=== PATIENT | male | born 1950 | race Caucasian/White ===

== ENCOUNTER 2020-05-25 07:33 | Day surgery (SDC) | payer MEDICARE, OTHER, SELFPAY ==
[2020-05-18 15:22] VITALS: BMI 33.9
--- NOTE | 2020-05-20 15:19 | HO.ANESPROP2 ---
Documented by User: Jaja Raines 05/20/20 15:20 HPI - Anesthesia Eval Consult details Narrative: 70yo M for Upper Endoscopy and Colonoscopy PMFSH Past Medical History Medical History Anemia Depression Elevated cholesterol HTN (hypertension) Surgical History Surgical History H/O colonoscopy History of esophagogastroduodenoscopy (EGD) Social History Social History Are you a primary child care counselor to a significant other at home: No Do you presently have visiting nurse or other home services: No Smoking Status: Former smoker Tobacco Type: Cigarette Smoked in Last 30 Days: No Smoking Quit Date: 1990 Use of substances other than those prescribed or required for medical reasons: No Have you been hit, kicked, punched, or otherwise hurt by someone within the past year? If so, by whom?: No Advance Directives Information Provided: No Recently lost weight without trying: No Meds Allergies Allergy/AdvReac Type Severity Reaction Status Date / Time bee pollen [BEE STINGS] Allergy Severe ANAPHYLAXIS Verified 05/25/20 07:57 Home Medications Medication Instructions Recorded Confirmed Last Taken Type amitriptyline 100 mg PO BEDTIME 02/11/20 05/18/20 Unknown History amlodipine 5 mg PO DAILY 02/11/20 05/18/20 Unknown History aspirin [Aspirin Low Dose] 81 mg PO DAILY 02/11/20 05/18/20 Unknown History atorvastatin 40 mg PO BEDTIME 02/11/20 05/18/20 Unknown History docusate sodium [DOK] 100 mg PO DAILY 02/11/20 05/18/20 Unknown History ferrous sulfate 325 mg PO DAILY 02/11/20 05/18/20 Unknown History lisinopril 40 mg PO DAILY 02/11/20 05/18/20 Unknown History paroxetine HCl 40 mg PO DAILY 02/11/20 05/18/20 Unknown History terazosin 1 mg PO DAILY 02/11/20 05/18/20 Unknown History Exam Exam Date and Time: May 20, 2020 1519 Height,Weight and Vital Signs: Height 5 ft 6 in Weight 95.254 kg Assessment and Plan Assessment Anesthesia Assessment: Chart Reviewed Documented by User: Deedee Hauser 05/25/20 08:03 PMFSH Past Medical History Medical History Anemia Depression Elevated cholesterol HTN (hypertension) Family History Family history of problems with anesthesia: No Surgical History Surgical History H/O colonoscopy History of esophagogastroduodenoscopy (EGD) History of Problems with Anesthesia: No Social History Social History Are you a primary child care counselor to a significant other at home: No Do you presently have visiting nurse or other home services: No Smoking Status: Former smoker Tobacco Type: Cigarette Smoked in Last 30 Days: No Smoking Quit Date: 1990 Use of substances other than those prescribed or required for medical reasons: No Have you been hit, kicked, punched, or otherwise hurt by someone within the past year? If so, by whom?: No Advance Directives Information Provided: No Recently lost weight without trying: No Meds Allergies Allergy/AdvReac Type Severity Reaction Status Date / Time bee pollen [BEE STINGS] Allergy Severe ANAPHYLAXIS Verified 05/25/20 07:57 Home Medications Medication Instructions Recorded Confirmed Last Taken Type amitriptyline 100 mg PO BEDTIME 02/11/20 05/18/20 Unknown History amlodipine 5 mg PO DAILY 02/11/20 05/18/20 Unknown History aspirin [Aspirin Low Dose] 81 mg PO DAILY 02/11/20 05/18/20 Unknown History atorvastatin 40 mg PO BEDTIME 02/11/20 05/18/20 Unknown History docusate sodium [DOK] 100 mg PO DAILY 02/11/20 05/18/20 Unknown History ferrous sulfate 325 mg PO DAILY 02/11/20 05/18/20 Unknown History lisinopril 40 mg PO DAILY 02/11/20 05/18/20 Unknown History paroxetine HCl 40 mg PO DAILY 02/11/20 05/18/20 Unknown History terazosin 1 mg PO DAILY 02/11/20 05/18/20 Unknown History Exam Height,Weight and Vital Signs: Vital Signs Temp Pulse Resp BP Pulse Ox 05/25/20 07:46 97.4 F 89 16 129/87 98 Airway Mallampati Class: II TM Dist: >3cm Neck ROM: Full Loose/Missing/Broken Teeth: Yes (Some missing) Heart: RRR Lungs: CTAB Assessment and Plan Assessment Anesthesia Assessment: Anesthesia Plan Discussed and Chart Reviewed Final Anesthetic Review NPO: Yes ASA Class: II Final Preanesthetic Review: No Changes in Pt Med Stat, Meds/Allgs Chart Reviewed, Consent Obtained/Reviewed and Anes Risks/Benef Reviewed Patient Risk: Low Procedure Risk: Low Assessment/Block/Sedation in SS: Assess/Block/Sedation-SS Anesthetic Plan Anesthetic Plan: MAC: Disposition: Standard PACU
--- NOTE | 2020-05-25 07:37 | MHC.SHP ---
Pre-Procedural Eval Section B Chief Complaint: Barretts, Anemia Details of Present Illness: hx of barretts, incomplete colonoscopy Relevant Family History (Specify if Yes): No Relevant Social History: Tobacco Use Present Medications: see Short Stay Collaborative assessment Medical History: Significant History (Anemia Depression Elevated cholesterol HTN (hypertension)) History of Previous Operations: Relevant previous surgery/procedure and date(s) Allergies: Allergies Allergy/AdvReac Type Severity Reaction Status Date / Time bee pollen [BEE STINGS] Allergy Severe ANAPHYLAXIS Verified 02/11/20 15:08 Review of Systems Sugical H&P ROS: Negative: Constitution, Cardiovascular, Respiratory, Neurological, Psychiatric, Hem-Onc, Allergic/Immunologic, Gastrointestinal, Genitourinary, Musculoskeletal, Integumentary, Endocrine and Eyes/Ears/Nose/Throat Exam Surgical H&P Exam: Normal: HEENT, Normal: Heart, Normal: Lungs, Normal: Extremities, Normal: Abdomen, Normal: Skin and Normal: Neurological Plan Diagnosis/Plan: Unchanged I have reviewed the history and physical and performed a pertinent physical examination on my patient. No changes have occurred unless specified.
[2020-05-25 07:46] VITALS: BP 129/87; PULSE 89; RESP 16; TEMP 36.3; O2SAT 98
[2020-05-25] MEDS: Lactated Ringers 1,000 ML 100 ML IVCONT (08:14)
--- NOTE | 2020-05-25 08:56 | PM.OP ---
Brief Operative Note Date of Service: 05/25/20 Pre-op diagnosis: barretts, incomplete colonoscopy Post-op diagnosis: same Procedure: see op note Surgeon: Nathanael Martin MD Anesthesia: GETA Estimated blood loss (mL): 0 Condition: stable Disposition: PACU
--- NOTE | 2020-05-25 08:56 | W.PM.OPN ---
Operative Note Operative Note Date of Service: 05/25/20 Narrative: Operative Information Procedure Description: EGD, Colonoscopy General anesthesia given FLEXIBLE TRANSORAL UPPER GASTROINTESTINAL ENDOSCOPY AND COLONOSCOPY PROCEDURE NOTE UPPER ENDOSCOPY Consent: Indications for the procedure and potential complications of bleeding, perforation, reaction to medications and missed diagnosis were discussed with the patient and informed consent was obtained. Instrument: Olympus GIF H 190 J mid size upper endoscope Monitoring: Vital signs and clinical assessment, continuous EKG monitoring, Pulse oximetry, Carbon Dioxide monitoring and blood pressure monitoring were done throughout the procedure. Procedure: The patient was placed in the left lateral decubitis position and pre-procedure medications were administered and a bite block was placed. The endoscope was inserted into the mouth and advanced under direct vision to the third part of duodenum. A careful inspection was made as the upper endoscope was withdrawn including a retroflexed examination of the proximal stomach; Findings and interventions are described below. Findings: Larynx:normal Esophagus: GE junction at 37 cm, diaphragm hiatus at 42 cm, consistent with 5 cm hiatal hernia. Long segment of salmon pink mucosa noted C10M11, WATS brushings taken, as well as biopsy every 2 cm 4 quadrants per [place] protocol. No discrete nodular lesions or masses seen with blue light. Stomach: Normal mucosa. Grade 2 flap valve on retroflexed examination of the cardia. Duodenum: Normal bulb and descending duodenum, Intervention: Biopsies as noted above with brushings for WATS sampling COLONOSCOPY Instrument: Olympus variable stiffness ADULT scope 190L Colonoscopy Monitoring: Vital signs and clinical assessment, continuous EKG monitoring, Pulse oximetry, Carbon Dioxide monitoring and blood pressure monitoring were done throughout the procedure. Colon withdrawal time was 10 minutes. Procedure: The patient was placed in the left lateral decubitis position and pre-procedure medications were administered. After a digital rectal examination of the ano-rectum, the video colonoscope was inserted into the rectum and advanced through the colon to the cecum/TI. The colonoscope was slowly withdrawn in a retrograde panoramic fashion and the colon mucosa was carefully examined including a retroflexed view of the rectum. Findings and interventions are described below. Procedure Difficulty:difficult due to looping, pressure applied by 2 people to LLQ and right side abdomen Findings: Terminal Ileum-not intubated Cecum: 10-11 mm sessile polyp removed with cold snare, residual tissue with forceps, then one clip applied for hemostasis Ascending Colon: normal Transverse Colon -normal Descending Colon:normal Sigmoid Colon: scattered diverticula noted Rectum: Retroflexion with small internal hemorrhoids, grade I, 8-9 mm sessile polyp removed with forceps Anorectum - normal Colon preparation: [place] Bowel Preparation Scale Right colon; 2 Transverse colon: 2 Left colon; 1 (0 = Unprepared colon segment with mucosa not seen due to solid stool that cannot be cleared. 1 = Portion of mucosa of the colon segment seen, but other areas of the colon segment not well seen due to staining, residual stool and/or opaque liquid. 2 = Minor amount of residual staining, small fragments of stool and/or opaque liquid, but mucosa of colon segment seen well. 3 = Entire mucosa of colon segment seen well with no residual staining, small fragments of stool or opaque liquid) Impression and Post Procedure Diagnosis: Endoscopy Findings: barretts, hiatal hernia Colonoscopy Findings: polyps internal hemorrhoids diverticular disease Plan: Await Pathology results Repeat Colonoscopy in 2-3 years or earlier if clinically indicated High fiber diet leaflet avoid straining at stool, epsom salts and sitz bath, anusol supps or cream prn may need repeat EGD with RFA or hybrid APC, will await results next colonoscopy with adult scope and maybe prone position Above findings were reviewed with the patient and relevant handouts were provided if indicated.
[2020-05-25 10:48] VITALS: BP 127/68; PULSE 74; RESP 16; TEMP 36.9; O2SAT 99
[2020-05-25 10:53] VITALS: BP 125/74; PULSE 70; RESP 16; O2SAT 96
[2020-05-25 10:58] VITALS: BP 127/77; PULSE 67; RESP 16; O2SAT 96
[2020-05-25 11:03] VITALS: BP 131/74; PULSE 62; RESP 16; O2SAT 96
[2020-05-25 11:18] VITALS: BP 132/82; PULSE 64; RESP 18; TEMP 36.9; O2SAT 97
== END 2020-05-25 12:24 | disposition home or self-care (01) ==
PROVIDERS: PCP Internal Medicine; Visit Provider Internal Medicine Gastroenterology
PROC: (CPT 45385; principal; 2020-05-25 08:30)
DX: D64.9 Anemia, unspecified (principal); K22.70 Barrett's esophagus without dysplasia; K57.30 Diverticulosis of large intestine without perforation or abscess without bleeding; K56.2 Volvulus; K64.0 First degree hemorrhoids; D12.0 Benign neoplasm of cecum; K62.1 Rectal polyp; I10 Essential (primary) hypertension; Z79.899 Other long term (current) drug therapy
CPT/HCPCS: 45385; 45380; 43239; 88305; J1100; J2405; J3010

== ENCOUNTER → 2020-06-10 09:57 | Outpatient (BNVA) | payer MEDICARE, SELFPAY | PROVIDERS: PCP Internal Medicine; Visit Provider Internal Medicine Gastroenterology | DX: Z13.89 Encounter for screening for other disorder (principal) | CPT/HCPCS: Q3014 ==

== ENCOUNTER 2020-12-14 07:02 | Day surgery (SDC) | payer MEDICARE, OTHER, SELFPAY ==
[2020-12-07 15:06] VITALS: BMI 33.2
--- NOTE | 2020-12-13 09:41 | HO.ANESPROP2 ---
Documented by User: Jjaa Raines NP 12/13/20 09:42 HPI - Anesthesia Eval Consult details Narrative: 70yo M for Upper Endoscopy s/p EGD and [place] 05/2020 with MAC PMFSH Active Problems Active Problems: All Active Problems (Updated 12/07/20 @ 14:56 by Ronna Mera RN) Springer's esophagus (Acute) Colonic polyp (Acute) Depression (Acute) Past Medical History Medical History (Updated 12/07/20 @ 14:56 by Ronna Mera RN) Anemia Barretts esophagus Depression Elevated cholesterol Hiatal hernia HTN (hypertension) Family History Family History (Updated 06/10/20 @ 10:02 by JOSÉ MIGUEL Malone) Father No problems noted. Mother No problems noted. Family history of problems with anesthesia: No Surgical History Surgical History (Updated 12/07/20 @ 14:56 by Ronna Mera RN) H/O colonoscopy History of esophagogastroduodenoscopy (EGD) History of Problems with Anesthesia: No Social History Social History (Updated 06/10/20 @ 10:01 by JOSÉ MIGUEL Malone) Are you a primary healthcare management consultant to a significant other at home: No Do you presently have visiting nurse or other home services: No Alcohol intake: current Alcohol intake frequency: does not drink Patient Tobacco Use Status: Former Tobacco user Quit Date: 1990 Tobacco use type: Cigarette Use of substances other than those prescribed or required for medical reasons: No Have you been hit, kicked, punched, or otherwise hurt by someone within the past year? If so, by whom?: No Are you DNR?: No Advance Directives: No Advance Directives Information Provided: No (states does not have a HCP) Advance Directives on File: No Recently lost weight without trying: No Eating poorly because of decreased appetite: No Nutrition Risks: No Nutritional Risk Poor oral hygiene: No (upper partial) Meds Allergies Allergy/AdvReac Type Severity Reaction Status Date / Time bee pollen [BEE STINGS] Allergy Severe ANAPHYLAXIS Verified 12/14/20 08:00 Home Medications Medication Instructions Recorded Confirmed Last Taken Type amitriptyline 100 mg tablet 100 mg PO BEDTIME 02/11/20 12/07/20 Unknown History amlodipine 5 mg tablet 5 mg PO DAILY 02/11/20 12/07/20 12/14/20 06:30 History aspirin 81 mg tablet,delayed 81 mg PO DAILY 02/11/20 12/14/20 09/13/20 History release (Aspirin Low Dose) atorvastatin 40 mg tablet 40 mg PO BEDTIME 02/11/20 12/07/20 Unknown History docusate sodium 100 mg capsule 100 mg PO DAILY 02/11/20 12/07/20 Unknown History (DOK) ferrous sulfate 325 mg (65 mg 325 mg PO DAILY 02/11/20 12/14/20 12/13/20 History iron) tablet lisinopril 40 mg tablet 40 mg PO DAILY 02/11/20 12/07/20 Unknown History paroxetine HCl 40 mg tablet 40 mg PO DAILY 02/11/20 12/07/20 05/25/20 06:00 History terazosin 1 mg capsule 1 mg PO DAILY 02/11/20 12/07/20 Unknown History meloxicam 15 mg tablet 15 mg PO DAILY 06/10/20 12/07/20 Unknown History pantoprazole 40 mg tablet,delayed 40 mg PO DAILY 06/10/20 12/07/20 Unknown History release sennosides 8.6 mg tablet 17.2 mg PO DAILY 06/10/20 12/07/20 Unknown History Exam Exam Date and Time: December 13, 2020 0941 Height,Weight and Vital Signs: Height 5 ft 6 in Weight 93.44 kg Assessment and Plan Assessment Anesthesia Assessment: Chart Reviewed Final Anesthetic Review Family History of Problems with Anesthesia: No History of Problems with Anesthesia: No Documented by User: Wilver Chaves MD 12/14/20 08:20 [facility] Past Medical History Medical History (Updated 12/07/20 @ 14:56 by Ronna Mera RN) Anemia Barretts esophagus Depression Elevated cholesterol Hiatal hernia HTN (hypertension) Family History Family History (Updated 06/10/20 @ 10:02 by JOSÉ MIGUEL Malone) Father No problems noted. Mother No problems noted. Surgical History Surgical History (Updated 12/07/20 @ 14:56 by Ronna Mera RN) H/O colonoscopy History of esophagogastroduodenoscopy (EGD) Social History Social History (Updated 06/10/20 @ 10:01 by JOSÉ MIGUEL Malone) Are you a primary healthcare management consultant to a significant other at home: No Do you presently have visiting nurse or other home services: No Alcohol intake: current Alcohol intake frequency: does not drink Patient Tobacco Use Status: Former Tobacco user Quit Date: 1990 Tobacco use type: Cigarette Use of substances other than those prescribed or required for medical reasons: No Have you been hit, kicked, punched, or otherwise hurt by someone within the past year? If so, by whom?: No Are you DNR?: No Advance Directives: No Advance Directives Information Provided: No (states does not have a HCP) Advance Directives on File: No Recently lost weight without trying: No Eating poorly because of decreased appetite: No Nutrition Risks: No Nutritional Risk Poor oral hygiene: No (upper partial) Meds Allergies Allergy/AdvReac Type Severity Reaction Status Date / Time bee pollen [BEE STINGS] Allergy Severe ANAPHYLAXIS Verified 12/14/20 08:00 Home Medications Medication Instructions Recorded Confirmed Last Taken Type amitriptyline 100 mg tablet 100 mg PO BEDTIME 02/11/20 12/07/20 Unknown History amlodipine 5 mg tablet 5 mg PO DAILY 02/11/20 12/07/20 12/14/20 06:30 History aspirin 81 mg tablet,delayed 81 mg PO DAILY 02/11/20 12/14/20 09/13/20 History release (Aspirin Low Dose) atorvastatin 40 mg tablet 40 mg PO BEDTIME 02/11/20 12/07/20 Unknown History docusate sodium 100 mg capsule 100 mg PO DAILY 02/11/20 12/07/20 Unknown History (DOK) ferrous sulfate 325 mg (65 mg 325 mg PO DAILY 02/11/20 12/14/20 12/13/20 History iron) tablet lisinopril 40 mg tablet 40 mg PO DAILY 02/11/20 12/07/20 Unknown History paroxetine HCl 40 mg tablet 40 mg PO DAILY 02/11/20 12/07/20 05/25/20 06:00 History terazosin 1 mg capsule 1 mg PO DAILY 02/11/20 12/07/20 Unknown History meloxicam 15 mg tablet 15 mg PO DAILY 06/10/20 12/07/20 Unknown History pantoprazole 40 mg tablet,delayed 40 mg PO DAILY 06/10/20 12/07/20 Unknown History release sennosides 8.6 mg tablet 17.2 mg PO DAILY 06/10/20 12/07/20 Unknown History Exam Airway Mallampati Class: III TM Dist: >3cm Neck ROM: Full Loose/Missing/Broken Teeth: No Heart: [id number] Lungs: cta b/l Assessment and Plan Assessment Anesthesia Assessment: Anesthesia Plan Discussed and PAT Visit Final Anesthetic Review NPO: Yes ASA Class: III Final Preanesthetic Review: No Changes in Pt Med Stat, Meds/Allgs Chart Reviewed, Consent Obtained/Reviewed and Anes Risks/Benef Reviewed Patient Risk: Intermediate Procedure Risk: Low Assessment/Block/Sedation in SS: Assess/Block/Sedation-SS Anesthetic Plan Anesthetic Plan: MAC: and Agree w/ Assess. and Plan Disposition: Standard PACU
[2020-12-14 08:07] VITALS: BP 111/77; PULSE 61; RESP 16; TEMP 36.4; O2SAT 99
[2020-12-14] MEDS: Lactated Ringers 1,000 ML 100 ML IVCONT (08:22)
--- NOTE | 2020-12-14 08:48 | P.HPSUR_ITS ---
Pre-Procedural Eval Section A Date of Service: 12/14/20 Section B Chief Complaint: barretts Relevant Family History (Specify if Yes): No Relevant Social History: None (ex smoker) Present Medications: see Short Stay Collaborative assessment Medical History: Significant History (Anemia Barretts esophagus Depression Elevated cholesterol Hiatal hernia HTN (hypertension)) History of Previous Operations: Relevant previous surgery/procedure and date(s) (EGD,colonoscopy) Allergies: Allergies Allergy/AdvReac Type Severity Reaction Status Date / Time bee pollen [BEE STINGS] Allergy Severe ANAPHYLAXIS Verified 12/14/20 08:00 Review of Systems Sugical H&P ROS: Negative: Constitution, Cardiovascular, Respiratory, Neurological, Psychiatric, Hem-Onc, Allergic/Immunologic, Gastrointestinal, Genitourinary, Musculoskeletal, Integumentary, Endocrine and Eyes/Ears/Nose/ Throat Exam Surgical H&P Exam: Normal: HEENT, Normal: Heart, Normal: Lungs, Normal: Extremities, Normal: Abdomen, Normal: Skin and Normal: Neurological Plan Diagnosis/Plan: Unchanged I have reviewed the history and physical and performed a pertinent physical examination on my patient. No changes have occurred unless specified.
--- NOTE | 2020-12-14 08:50 | P.BOP_ITS ---
Brief Operative Note Date of Service: 12/14/20 Pre-op diagnosis: barretts Post-op diagnosis: same Procedure: see op note Surgeon: Nathanael Martin MD Anesthesia: MAC Was an Human Capital Consultant used for this Procedure?: No Estimated blood loss (mL): 0 Condition: stable Disposition: PACU
--- NOTE | 2020-12-14 08:50 | W.PM.OPN ---
Operative Note Operative Note Date of Service: 12/14/20 Narrative: Procedure Description: EGD FLEXIBLE TRANSORAL UPPER GASTROINTESTINAL ENDOSCOPY UPPER ENDOSCOPY Consent: Indications for the procedure and potential complications of bleeding, perforation, reaction to medications and missed diagnosis were discussed with the patient and informed consent was obtained. Instrument: Olympus GIF H 190 J mid size upper endoscope Monitoring: Vital signs and clinical assessment, continuous EKG monitoring, Pulse oximetry, Carbon Dioxide monitoring and blood pressure monitoring were done throughout the procedure. Procedure: The patient was placed in the left lateral decubitis position and pre-procedure medications were administered and a bite block was placed. The endoscope was inserted into the mouth and advanced under direct vision to the third part of duodenum. A careful inspection was made as the upper endoscope was withdrawn including a retroflexed examination of the proximal stomach; Findings and interventions are described below. Findings: Larynx:normal Esophagus: GE junction at 35? cm, diaphragm hiatus at 42 cm, consistent with 7 cm hiatal hernia. Long segment of salmon pink mucosa noted C10M0, WATS brushings taken, as well as biopsy every 2 cm 4 quadrants per [place] protocol. No discrete nodular lesions or masses seen with blue light. Stomach: Normal mucosa. Grade 2 flap valve on retroflexed examination of the cardia. Duodenum: Normal bulb and descending duodenum, Intervention: Biopsies as noted above with brushings for WATS sampling Impression/Findings: Barretts esophagus PLAN: await bx repeat surveillance pending results
[2020-12-14 09:45] VITALS: BP 109/54; PULSE 63; RESP 16; TEMP 36.3; O2SAT 94
[2020-12-14 09:51] VITALS: PULSE 58; RESP 16; O2SAT 94
[2020-12-14 10:00] VITALS: BP 115/53; PULSE 52; RESP 16; O2SAT 97
== END 2020-12-14 11:34 | disposition home or self-care (01) ==
PROVIDERS: PCP Internal Medicine; Visit Provider Internal Medicine Gastroenterology
PROC: 0DJ08ZZ Inspection of Upper Intestinal Tract, Via Natural or Artificial Opening Endoscopic (ICD-10-PCS; CPT 43235; principal; 2020-12-14 09:10)
DX: K22.70 Barrett's esophagus without dysplasia (principal); K44.9 Diaphragmatic hernia without obstruction or gangrene; I10 Essential (primary) hypertension
CPT/HCPCS: 43239; 88305; J3010

== ENCOUNTER → 2020-12-27 09:40 | Outpatient (BNVA) | payer MEDICARE, SELFPAY | PROVIDERS: PCP Internal Medicine; Visit Provider Internal Medicine Gastroenterology | DX: K22.70 Barrett's esophagus without dysplasia (principal) | CPT/HCPCS: 99212 ==

== ENCOUNTER → 2021-06-23 08:24 | Outpatient (BNVA) | payer MEDICARE, SELFPAY | PROVIDERS: PCP Internal Medicine; Visit Provider Internal Medicine Gastroenterology | DX: K22.719 Barrett's esophagus with dysplasia, unspecified (principal) | CPT/HCPCS: Q3014 ==

== ENCOUNTER 2021-11-10 08:07 | Day surgery (SDC) | payer MEDICARE, OTHER, SELFPAY ==
[2021-11-07 10:33] VITALS: BMI 33.5
--- NOTE | 2021-11-09 12:37 | P.CONAN_ITS ---
Documented by User: Jaja Raines NP 11/09/21 12:38 HPI - Anesthesia Eval Consult details Narrative: 71yo M for Upper Endoscopy EGD 12/2020 with MAC PMFSH Active Problems Active Problems: All Active Problems (Updated 12/07/20 @ 14:56 by Ronna Mera RN) Springer's esophagus (Acute) Colonic polyp (Acute) Depression (Acute) Past Medical History Medical History Anemia Barretts esophagus Depression Elevated cholesterol Hiatal hernia HTN (hypertension) Family History Family History Father No problems noted. Mother No problems noted. Family history of problems with anesthesia: No Surgical History Surgical History H/O colonoscopy History of esophagogastroduodenoscopy (EGD) History of Problems with Anesthesia: No Social History Social History Are you a primary care transitions manager to a significant other at home: No Do you presently have visiting nurse or other home services: No Alcohol intake: current Alcohol intake frequency: does not drink Patient Tobacco Use Status: Former Tobacco user Quit Date: 30 years ago Tobacco use type: Cigarette Use of substances other than those prescribed or required for medical reasons: No Are you DNR?: No Advance Directives: No Advance Directives Information Provided: Yes Meds Allergies Allergy/AdvReac Type Severity Reaction Status Date / Time bee pollen [BEE STINGS] Allergy Severe ANAPHYLAXIS Verified 06/23/21 08:24 Home Medications Medication Instructions Recorded Confirmed Last Taken Type amitriptyline 100 mg tablet 100 mg PO BEDTIME 02/11/20 12/07/20 Unknown History amlodipine 5 mg tablet 5 mg PO DAILY 02/11/20 12/07/20 11/10/21 History atorvastatin 40 mg tablet 40 mg PO BEDTIME 02/11/20 12/07/20 Unknown History docusate sodium 100 mg capsule 100 mg PO DAILY 02/11/20 12/07/20 Unknown History (DOK) ferrous sulfate 325 mg (65 mg 325 mg PO DAILY 02/11/20 12/14/20 12/13/20 History iron) tablet lisinopril 40 mg tablet 40 mg PO DAILY 02/11/20 12/07/20 Unknown History paroxetine HCl 40 mg tablet 40 mg PO DAILY 02/11/20 12/07/20 11/10/21 History terazosin 1 mg capsule 1 mg PO DAILY 02/11/20 12/07/20 Unknown History sennosides 8.6 mg tablet 17.2 mg PO DAILY 06/10/20 12/07/20 Unknown History trazodone 100 mg tablet 100 mg PO BEDTIME 12/27/20 Unknown History Exam Exam Date and Time: November 09, 2021 1237 Height,Weight and Vital Signs: Height 5 ft 7 in Weight 97.069 kg Assessment and Plan Assessment Anesthesia Assessment: Chart Reviewed Final Anesthetic Review Family History of Problems with Anesthesia: No History of Problems with Anesthesia: No Documented by User: Cora Schreiber MD 11/10/21 09:27 [facility] Past Medical History Medical History Anemia Barretts esophagus Depression Elevated cholesterol Hiatal hernia HTN (hypertension) Family History Family History Father No problems noted. Mother No problems noted. Surgical History Surgical History H/O colonoscopy History of esophagogastroduodenoscopy (EGD) Social History Social History Are you a primary care transitions manager to a significant other at home: No Do you presently have visiting nurse or other home services: No Alcohol intake: current Alcohol intake frequency: does not drink Patient Tobacco Use Status: Former Tobacco user Quit Date: 30 years ago Tobacco use type: Cigarette Use of substances other than those prescribed or required for medical reasons: No Are you DNR?: No Advance Directives: No Advance Directives Information Provided: Yes Meds Allergies Allergy/AdvReac Type Severity Reaction Status Date / Time bee pollen [BEE STINGS] Allergy Severe ANAPHYLAXIS Verified 06/23/21 08:24 Home Medications Medication Instructions Recorded Confirmed Last Taken Type amitriptyline 100 mg tablet 100 mg PO BEDTIME 02/11/20 12/07/20 Unknown History amlodipine 5 mg tablet 5 mg PO DAILY 02/11/20 12/07/20 11/10/21 History atorvastatin 40 mg tablet 40 mg PO BEDTIME 02/11/20 12/07/20 Unknown History docusate sodium 100 mg capsule 100 mg PO DAILY 02/11/20 12/07/20 Unknown History (DOK) ferrous sulfate 325 mg (65 mg 325 mg PO DAILY 02/11/20 12/14/20 12/13/20 History iron) tablet lisinopril 40 mg tablet 40 mg PO DAILY 02/11/20 12/07/20 Unknown History paroxetine HCl 40 mg tablet 40 mg PO DAILY 02/11/20 12/07/20 11/10/21 History terazosin 1 mg capsule 1 mg PO DAILY 02/11/20 12/07/20 Unknown History sennosides 8.6 mg tablet 17.2 mg PO DAILY 06/10/20 12/07/20 Unknown History trazodone 100 mg tablet 100 mg PO BEDTIME 12/27/20 Unknown History Exam Airway Mallampati Class: II TM Dist: >3cm Neck ROM: Full Partial: Upper and Lower Heart: rrr Lungs: cta Assessment and Plan Assessment Anesthesia Assessment: Anesthesia Plan Discussed and Chart Reviewed Final Anesthetic Review NPO: Yes ASA Class: III Final Preanesthetic Review: No Changes in Pt Med Stat, Meds/Allgs Chart Reviewed and Consent Obtained/Reviewed Patient Risk: Intermediate Procedure Risk: Intermediate Anesthetic Plan Anesthetic Plan: MAC: Disposition: Standard PACU
[2021-11-10 08:33] VITALS: BP 138/91; PULSE 72; RESP 18; TEMP 37; O2SAT 96; BMI 33.6
[2021-11-10] MEDS: Lactated Ringers 1,000 ML 100 ML IVCONT (09:01)
--- NOTE | 2021-11-10 09:11 | MHC.SHP ---
Pre-Procedural Eval Section A Date of Service: 11/10/21 The patient is an INPATIENT: No The History & Physical has been completed within 30 days and I have reviewed it.: No Section B Chief Complaint: Springer's esophagus without dysplasia Details of Present Illness: FU of Springer's Relevant Family History (Specify if Yes): No Relevant Social History: Tobacco Use (former smoker) Present Medications: see Short Stay Collaborative assessment Medical History: Significant History (Anemia Barretts esophagus Depression Elevated cholesterol Hiatal hernia HTN (hypertension)) History of Previous Operations: Relevant previous surgery/procedure and date(s) (H/O colonoscopy History of esophagogastroduodenoscopy (EGD)) Allergies: Allergies Allergy/AdvReac Type Severity Reaction Status Date / Time bee pollen [BEE STINGS] Allergy Severe ANAPHYLAXIS Verified 06/23/21 08:24 Review of Systems Sugical H&P ROS: Negative: Constitution, Cardiovascular, Respiratory and Gastrointestinal Exam Surgical H&P Exam: Normal: Heart, Normal: Lungs, Normal: Extremities and Normal: Abdomen Plan Diagnosis/Plan: Change (proceed with EGD for fu of Springer's) I have reviewed the history and physical and performed a pertinent physical examination on my patient. No changes have occurred unless specified.
--- NOTE | 2021-11-10 09:29 | PM.OP ---
Brief Operative Note Date of Service: 11/10/21 Pre-op diagnosis: Follow-up of Barretts metaplasia Post-op diagnosis: other (hiatal hernia, Springer's esophagus) Procedure: FLEXIBLE TRANSORAL UPPER GASTROINTESTINAL ENDOSCOPY WITH BIOPSIES Consent: Indications for the procedure and potential complications of bleeding, perforation, reaction to medications and missed diagnosis were discussed with the patient and informed consent was obtained. Instrument: Olympus GIF H 190 mid size upper endoscope Monitoring: Vital signs and clinical assessment, continuous EKG monitoring, Pulse oximetry, Carbon Dioxide monitoring and blood pressure monitoring were done throughout the procedure. Procedure: The patient was placed in the left lateral decubitis position and pre-procedure medications were administered and a bite block was placed. The endoscope was inserted into the mouth and advanced under direct vision to the third part of duodenum. A careful inspection was made as the upper endoscope was withdrawn including a retroflexed examination of the proximal stomach; Findings and interventions are described below. Findings: Larynx: Normal Esophagus: GE junction at 35 cm. Diaphragm hiatus at 42 cm. Consistent with 7 cm hiatal hernia. Long segment of salmon pink mucosa previously biopsy proven to be Barretts esophagus was noted. [place] score C9M10. Wats-3D brushings x3 were taken and sent for processing. Marcus protocol 4-quadrant biopsies were taken every 2 cm. No discrete mass high definition white light or NBI. There was ulceration with nodularity at the GEJ at 35 cm slightly protruding into the stomach which could also be seen in the retroflexed view of the cardia. Forceps biopsies were obtained and sent in a separate jar. Stomach: Normal mucosa. Few polyps likely fundic gland polyps were noted in fundus and body. Large hiatal hernia was again noted on retroflexion. Duodenum: Normal mucosa in bulb and D2. Intervention: Biopsies as noted above with brushings for WATS-3D. Impression and Post Procedure Diagnosis: Endoscopy Findings: LARYNX: Normal ESOPHAGUS: 1. Springer's esophagus (biopsy and brushing) 2. ?Nodularity at 35 cm (biopsy) STOMACH: Normal DUODENUM: Normal Plan: Await pathology results Patient has an appointment on 12/08/21 in the GI [facility] with Dr Martin. Above findings were reviewed with the patient and Springer's esophagus handouts were given in the discharge area Surgeon: Darian Galeas MD Anesthesia: MAC Was an Mixer Operator Raw Salt used for this Procedure?: Yes Mixer Operator Raw Salt: Yao Bowen Estimated blood loss (mL): 1 Pathology: other (A) BX Nodularity @ GE Juction B) BX Esophagus @ 35cm C) BX Esophagus @ 33cm D) BX Esophagus @ 31cm E) BX Esophagus @ 29cm F) BX Esophagus @ 27cm G) BX) Condition: stable Disposition: PACU
--- NOTE | 2021-11-10 09:30 | W.PM.OPN ---
Operative Note Operative Note Date of Service: 11/10/21 Narrative: Pre-op diagnosis: Follow-up of Barretts metaplasia Post-op diagnosis:?other (hiatal hernia, Springer's esophagus) Procedure: FLEXIBLE TRANSORAL UPPER GASTROINTESTINAL ENDOSCOPY WITH BIOPSIES Consent:?Indications for the procedure and potential complications of bleeding, perforation, reaction to medications and missed diagnosis were discussed with the patient and informed consent was obtained. Instrument:?Olympus GIF H 190 mid size upper endoscope Monitoring: Vital signs and clinical assessment, continuous EKG monitoring, Pulse oximetry, Carbon Dioxide monitoring and blood pressure monitoring were done throughout the procedure. Procedure:?The patient was placed in the left lateral decubitis position and pre-procedure medications were administered and a bite block was placed. The endoscope was inserted into the mouth and advanced under direct vision to the third part of duodenum. A careful inspection was made as the upper endoscope was withdrawn including a retroflexed examination of the proximal stomach; Findings and interventions are described below. Findings: Larynx:? Normal Esophagus: GE junction at 35 cm. Diaphragm hiatus at 42 cm.? Consistent with 7 cm hiatal hernia.? Long segment of salmon pink mucosa previously biopsy proven to be Barretts esophagus was noted.? [place] score C9M10. Wats-3D brushings x3 were taken and sent for processing. ? [place] protocol 4-quadrant biopsies were taken every 2 cm.? No discrete mass high definition white light or NBI. There was ulceration with nodularity at the GEJ at 35 cm slightly protruding into the stomach which could also be seen in the retroflexed view of the cardia. Forceps biopsies were obtained and sent in a separate jar. Stomach: Normal mucosa. Few polyps likely fundic gland polyps were noted in fundus and body. Large hiatal hernia was again noted on retroflexion. Duodenum: Normal mucosa in bulb and D2. Intervention: Biopsies as noted above with brushings for WATS-3D. Impression and Post Procedure Diagnosis: Endoscopy Findings: LARYNX: Normal ESOPHAGUS: 1. Springer's esophagus (biopsy and brushing) ? ? 2. ?Nodularity at 35 cm (biopsy) STOMACH: Normal DUODENUM: Normal Plan: Await pathology results Patient has an appointment on 12/08/21 in the GI Clinic with Dr Martin. Above findings were reviewed with the patient and Springer's esophagus handouts were given in the discharge area Surgeon: MD Darian Sanchez MD was present during the procedure Anesthesia:?MAC Was an Orthopedic Rn used for this Procedure?:?Yes Orthopedic Rn:?Yao Bowen Estimated blood loss (mL):?1 Pathology:?other (A) BX Nodularity @ GE Juction? B) BX Esophagus @ 35cm? C) BX Esophagus @ 33cm? D) BX Esophagus @ 31cm? E) BX Esophagus @ 29cm? F) BX Esophagus @ 27cm? G) BX) Condition:?stable Disposition:?PACU
[2021-11-10 10:59] VITALS: BP 97/61; PULSE 54; RESP 13; TEMP 36.2; O2SAT 96
[2021-11-10 11:14] VITALS: BP 107/67; PULSE 49; RESP 13; O2SAT 96
[2021-11-10 11:29] VITALS: BP 127/80; PULSE 55; RESP 16; O2SAT 96
[2021-11-10 11:50] VITALS: BP 124/80; PULSE 59; RESP 18; TEMP 36.4; O2SAT 98
== END 2021-11-10 12:15 | disposition home or self-care (01) ==
PROVIDERS: PCP Internal Medicine; Visit Provider Internal Medicine Gastroenterology
PROC: 0DJ08ZZ Inspection of Upper Intestinal Tract, Via Natural or Artificial Opening Endoscopic (ICD-10-PCS; CPT 43235; principal; 2021-11-10 09:30)
DX: K22.70 Barrett's esophagus without dysplasia (principal); K44.9 Diaphragmatic hernia without obstruction or gangrene; K22.9 Disease of esophagus, unspecified; I10 Essential (primary) hypertension; D64.9 Anemia, unspecified; E78.00 Pure hypercholesterolemia, unspecified; F32.A Depression, unspecified; Z79.899 Other long term (current) drug therapy; Z87.891 Personal history of nicotine dependence
CPT/HCPCS: 43239; 88305

== ENCOUNTER → 2021-12-08 10:45 | Outpatient (BNVA) | payer MEDICARE, OTHER, SELFPAY | PROVIDERS: PCP Internal Medicine; Visit Provider Internal Medicine Gastroenterology | DX: D64.9 Anemia, unspecified (principal); K22.70 Barrett's esophagus without dysplasia; I10 Essential (primary) hypertension; E78.00 Pure hypercholesterolemia, unspecified | CPT/HCPCS: Q3014 ==

== ENCOUNTER → 2022-08-15 07:42 | Outpatient (REF) | payer MEDICARE, SELFPAY ==
--- NOTE | 2022-08-15 07:45 | CA_ITS ---
Transthoracic Echocardiogram Patient (Last, First, Middle): Axel Sotomayor J Gender: Male Date of : 1950 Age: 72 Procedure Date: 08/15/2022 Procedure Type: Transthoracic Echocardiogram Location: OP Height: 170.18 cm Weight: 97.52 kg BSA: 2.09 m2 Heart Rate: bpm BP: 132 / 82 mmHg Grip Assembler: TO Referring MD: Shannan Houston MD Symptoms: SOB Study Quality: Fair ECG Rhythm: Sinus Conclusions: - The left ventricular systolic function is normal. The calculated ejection fraction is 67% by biplane method. - Moderately increased right ventricular cavity size. - The left atrium is moderately dilated. - There is mild tricuspid valve regurgitation. Findings Left Ventricle Normal left ventricular cavity size. There is mildly increased left ventricular wall thickness. The left ventricular systolic function is normal. The calculated ejection fraction is 67% by biplane method. There is no evidence of regional wall motion abnormalities. Diastolic function is normal for age. Moderate focal hypertrophy of the basal septum. Right Ventricle Moderately increased right ventricular cavity size. There is normal right ventricular systolic function. (measurement likely over-estimate). Atria The left atrium is moderately dilated. The right atrium is mildly dilated. Aortic Valve There is a normal trileaflet aortic valve. There is no aortic valve stenosis. There is no aortic valve regurgitation. Mitral Valve The mitral valve appears normal. There is mild mitral valve regurgitation. There is no mitral valve stenosis. Pulmonic Valve The pulmonic valve is likely normal. Tricuspid Valve Normal tricuspid valve structure. There is mild tricuspid valve regurgitation. There is no evidence of pulmonary hypertension. Great Vessels The asc aorta is normal in size. Venous The inferior vena cava is normal in size and collapses greater than 50% with inspiration. Pericardium/Pleural There is no evidence of pericardial effusion. Prior Study Comparison No prior study available for comparison. Measurements 2D Linear Measurements IVSd: 1.36 0.6-0.9/0.6-1.0 cm LVIDd: 5.42 3.9-5.3/4.2-5.9 cm LVIDd Index: 2.59 2.4-3.2/2.2-3.1 cm/m2 LVIDs: 2.85 2.0-3.6 cm LVPWd: 1.09 0.7-1.1 cm LA Diam: 3.30 2.7-3.8/3.0-4.0 cm LAIDs Index: 1.58 1.5-2.3 cm/m2 LV Mass: 341.35 67-162/88-224 g LV Mass Index: 163.33 43-95/49-115 g/m2 LVOT Diam: 2.50 3.0+(-)1.3 cm 2D Systolic Function EF 4C: 66.50 >55% EF 2C: 63.90 >55% EF BiP: 66.90 >55% Mitral Valve MV Pk E: 0.75 MV PK A: 0.62 MV Decel Time: 290.00 E/A: 1.20 E'Lateral: 7.51 E'Medial: 7.62 E/E' Med: 9.80 E/E' Lat: 9.90 PHT: 84.00 MVA PHT: 2.62 Decel [place]: 2.49 MR Vol - PW Dopp: 35.19 MR VTI: 2.07 MR ERO: 17.00 MR Alias Javed: 0.39 MR RAD: 0.60 Aortic Valve AoV Pk Javed: 1.26 AoV Mn Javed: 0.87 AoV VTI: 0.32 AoV Pk Grad: 6.00 Aov Mn Grad: 4.00 MICKY Cont.VTI: 3.38 LVOT LVOT Pk Javed: 1.03 LVOT Mn Javed: 0.66 LVOT VTI: 0.22 LVOT Pk Grad: 4.00 LVOT Mn Grad: 2.00 LVOT Diam: 2.50 LVOT Area: 4.91 Diastolic Function MV Pk E: 0.75 MV Pk A: 0.62 E/A: 1.20 E'Medial: 7.62 E/E' Med: 9.80 E' Laterial: 7.51 E/E' Lat: 9.90 Right Ventricle TAPSE (mm): 23.50 TVS' Javed: 9.36 Tricuspid Valve TR Pk Javed: 2.21 TR Pk Grad: 20.00 RA Press: 3.00 RVSP: 23.00 Great Vessels Aorta Sinus of Valsalva: 4.11 2.0-3.[address] [place]: 3.31 1.7-3.4 cm Ao Asc: 3.70 2.1-3.4 cm Updated in Other Vendor System with Status of Final Jonathan Stearns MD electronically signed on 08/16/2022 3:50:41 PM with status of Final
== END ==
LOC: HO.CARD 07:42
PROVIDERS: PCP Internal Medicine; Visit Provider Internal Medicine
DX: R06.02 Shortness of breath (principal)
CPT/HCPCS: 93306

== ENCOUNTER 2023-02-07 09:39 | Outpatient (REF) | payer MEDICARE, SELFPAY ==
[2023-02-07 14:09] LABS: MANUAL DIFF FLAG NO
[2023-02-07 14:18] LABS: Basophils Absolute Auto 0.1 X10*3/uL (0.0-0.2); Basophils Percent Auto 1.5 % (0-2); Eosinophils Absolute Auto 0.4 X10*3/uL (0.0-0.4); Eosinophils Percent Auto 6.4 % (0-4); Hematocrit 39.5 % (42.0-52.0); Hemoglobin 13.7 g/dl (14.0-18.0); Imm Gran Abs Auto 0.05 X10*3/uL (0.00-0.03); Imm Gran Pct Auto 0.8 % (0.0-0.4); Lymphocytes Absolute Auto 1.4 X10*3/uL (1.2-4.9); Lymphocytes Percent Auto 21.1 % (20-40); Mean Corpuscular HGB Conc 34.7 g/dl (31.0-36.0); Mean Corpuscular Hemoglobin 31.5 pg (27.0-33.0); Mean Corpuscular Volume 90.8 fL (80.0-98.0); Mean Platelet Volume 11.2 fL (9.4-12.4); Monocytes Absolute Auto 0.6 X10*3/uL (0.1-1.2); Monocytes Percent Auto 9.5 % (2-11); Neutrophils Percent Auto 60.7 % (45-73); Platelet Count 253 X10*3/uL (160-400); Red Blood Count 4.35 X10*6/uL (4.60-5.80); Red Cell Distribution Width 12.8 % (11.0-16.0); White Blood Count 6.5 X10*3/uL (4.8-10.8)
[2023-02-07 14:43] LABS: Alanine Aminotransferase 33 U/L (0-40); Albumin Level 4.6 g/dL (3.5-5.0); Alkaline Phosphatase 75 U/L (39-117); Anion Gap 13 (12-20); Aspartate Amino Transferase 26 U/L (5-37); Bilirubin Total 0.5 mg/dL (0.0-1.0); Blood Urea Nitrogen 19 mg/dL (9-16); Calcium 9.1 mg/dL (8.4-10.2); Carbon Dioxide 22 mmol/L (22-29); Chloride 111 mmol/L (96-108); Cholesterol 165 mg/dL (<200); Estimated Glomerular Filt Rate > 60; Glucose Fasting 76 mg/dL (60-99); HDL Cholesterol 47 mg/dL (>40); LDL Cholesterol Calculated 82 mg/dL (<100); Potassium 3.8 mmol/L (3.3-5.1); Sodium 142 mmol/L (135-145); Total Protein 7.2 g/dL (6.5-8.0); Triglycerides 184 mg/dL (<150)
== END 2023-02-07 09:40 | disposition home or self-care (01) ==
LOC: HO.CHCLDS 09:39
PROVIDERS: Visit Provider Internal Medicine
DX: I10 Essential (primary) hypertension (principal); D50.9 Iron deficiency anemia, unspecified
CPT/HCPCS: 36415; 80053; 80061; 84443; 85025

== ENCOUNTER 2023-08-09 11:49 | Outpatient (AMB) | payer MEDICARE, SELFPAY ==
[2023-08-09 11:51] VITALS: BP 119/86; PULSE 67; BMI 33.3
--- NOTE | 2023-08-09 11:51 | A.OFFVIS_ITS ---
Vital Signs 08/09/23 11:51 Height 5 ft 7 in Weight 212 lb 8.41 oz BMI 33.3 BP 119/86 Blood Pressure Location Lt brachial Position Sitting Pulse 67 Intake Visit Reasons: follow up meds Intake Note: Axel presents to in office visit today in follow up for medications. CC: Denies having any GI symptoms or concerns today. Electronic Calibration Technician Required: No Accompanied by: Self / Same As Patient Allergies bee pollen [BEE STINGS] Allergy (Severe, Verified 08/09/23 11:56) ANAPHYLAXIS No Known Drug Allergies Allergy (Unknown, Verified 08/09/23 11:56) none HPI HPI follow up meds: Details: 73 yr old m w hx of high chol, HTN called for f/u for barretts RECAP: He had microcytic anemia, HGB 11, MCV 79, Fe sat 5% and ferritin 14 from 09/2018 he is on aspirin he said he has had anemia for few years never seen blood in stool or melena had colonoscopy 5 yrs ago and had few polyps removed--told repeat due in 3 yrs never had upper GI scope not on nsaid or other blood thiner EGD/colonoscopy--10/06/18-- erosive gastritis, shefali erosions, large hiatal hernia, barretts esophagus, tubular adenoma EGD 10/2019--barretts. wats and bx indefinite for dysplasia, posisble favor colonoscopy--incomplete, poor prep, diverticulosis EGD/colonoscopy-- 05/2020-- polyp from cecum, barretts, c10M11, no dysplasia on WATS or biopsy ([place] protocol) EGD: 12/2020--7 cm hiatal hernia. Long segment of salmon pink mucosa noted R91M76--okmv of LGD, and multiple areas of indefinite dysplasia both on path and WATS3D EGD 11/2021- WATS 3D with adequate cellularity, neg for dysplasia, reactive changes, path with no dysplasia and on area with indefinite dysplasia at 26 cm INTERIM: He has been taking PPI BID as recommended his main c/o fatigue, going on for 6 months no n/v weight stable. appetite is good no abdo pain EXAM: GENERAL: The patient is well developed and nontoxic. VITAL SIGNS:see workflow HEENT: Nonicteric sclerae, PERRLA, EOMI. Oropharynx clear. Moist mucous membranes. Conjunctivae appear well perfused. No thyroid mass. CHEST: Chest wall is nontender. HEART: Regular rate and rhythm without murmurs. LUNGS: Clear to auscultation bilaterally. ABDOMEN: Soft, positive bowel sounds, nontender, no organomegaly.no flank tenderness SKIN: No rash, no excessive bruising, petechiae, or purpura. NEUROLOGIC: Cranial nerves II-XII intact without motor/sensory deficit. Psych: normal affect Assessments 1. Springer's esophagus with dysplasia initially then increased PPI to BID< now no dysplasia--fatigue now 1/Repeat EGD now 2/ check labs due to fatigue, does admit to snoring as well --could be MUSA PFSH Medical History Hiatal hernia Barretts esophagus Anemia Depression Elevated cholesterol HTN (hypertension) Surgical History History of esophagogastroduodenoscopy (EGD) H/O colonoscopy Family History Father No problems noted. Mother No problems noted. Social History Are you a primary care management assistant to a significant other at home: No Do you presently have visiting nurse or other home services: No Alcohol intake: current Alcohol intake frequency: does not drink Patient Tobacco Use Status: Former Tobacco user Quit Date: 30 years ago Tobacco use type: Cigarette Physical Exam Vital Signs: Last Vital Signs Pulse 67 08/09/23 11:51 BP 119/86 08/09/23 11:51 BMI result Body Mass Index 33.3 Assessment & Plan Assessment & Plan (1) Springer's esophagus: Code(s): K22.70 - Springer's esophagus without dysplasia Category: Medical Plan: see above (2) Iron deficiency: Code(s): E61.1 - Iron deficiency Category: Medical Plan: see above (3) Fatigue: Code(s): R53.83 - Other fatigue Category: Medical Plan: see above Orders: Orders Ferritin Today E61.1 - Iron deficiency, K22.70 - Springer's esophagus without dysplasia, R53.83 - Other fatigue Vitamin B12 and Folate Today E61.1 - Iron deficiency, K22.70 - Springer's eso phagus without dysplasia, R53.83 - Other fatigue Complete Blood Count Auto Diff Today E61.1 - Iron deficiency, K22.70 - Springer's esophagus without dysplasia, R53.83 - Other fatigue Comprehensive Met. Panel Today E61.1 - Iron deficiency, K22.70 - Springer's esophagus without dysplasia, K75.81 - Nonalcoholic steatohepatitis (BORGES), R53.83 - Other fatigue Coding Level of Care Code Est Pt Level 3 (01856) Diagnoses Springer's esophagus K22.70 Iron deficiency E61.1 Fatigue R53.83
== END 2023-08-09 13:25 | disposition home or self-care (01) ==
PROVIDERS: PCP Internal Medicine; Visit Provider Internal Medicine Gastroenterology
DX: K22.70 Barrett's esophagus without dysplasia (principal); E61.1 Iron deficiency; R53.83 Other fatigue
CPT/HCPCS: 99213

== ENCOUNTER 2023-08-09 11:49 | Outpatient (REF) | payer MEDICARE, SELFPAY ==
[2023-08-09 12:22] LABS: MANUAL DIFF FLAG NO
[2023-08-09 13:08] LABS: Basophils Absolute Auto 0.1 X10*3/uL (0.0-0.2); Basophils Percent Auto 1.5 % (0-2); Eosinophils Absolute Auto 0.3 X10*3/uL (0.0-0.4); Hematocrit 39.2 % (42.0-52.0); Hemoglobin 13.7 g/dl (14.0-18.0); Imm Gran Abs Auto 0.03 X10*3/uL (0.00-0.03); Imm Gran Pct Auto 0.4 % (0.0-0.4); Lymphocytes Absolute Auto 1.8 X10*3/uL (1.2-4.9); Lymphocytes Percent Auto 24.3 % (20-40); Mean Corpuscular HGB Conc 34.9 g/dl (31.0-36.0); Mean Corpuscular Hemoglobin 31.3 pg (27.0-33.0); Mean Corpuscular Volume 89.5 fL (80.0-98.0); Mean Platelet Volume 10.8 fL (9.4-12.4); Monocytes Absolute Auto 0.7 X10*3/uL (0.1-1.2); Monocytes Percent Auto 9.7 % (2-11); Neutrophils Absolute Auto 4.5 x10*3/uL (2.0-8.3); Neutrophils Percent Auto 60.1 % (45-73); Platelet Count 256 X10*3/uL (160-400); Red Blood Count 4.38 X10*6/uL (4.60-5.80); Red Cell Distribution Width 13.4 % (11.0-16.0); White Blood Count 7.5 X10*3/uL (4.8-10.8)
[2023-08-09 13:38] LABS: Alanine Aminotransferase 15 U/L (0-40); Albumin Level 4.6 g/dL (3.5-5.0); Alkaline Phosphatase 86 U/L (39-117); Anion Gap 13 (12-20); Aspartate Amino Transferase 16 U/L (5-37); Bilirubin Total 0.5 mg/dL (0.0-1.0); Blood Urea Nitrogen 20 mg/dL (9-16); Calcium 9.2 mg/dL (8.4-10.2); Carbon Dioxide 21 mmol/L (22-29); Chloride 104 mmol/L (96-108); Estimated Glomerular Filt Rate > 60; Glucose Random 90 mg/dL (60-115); Potassium 4.3 mmol/L (3.3-5.1); Sodium 134 mmol/L (135-145); Total Protein 7.4 g/dL (6.5-8.0)
[2023-08-09 13:55] LABS: Ferritin 228 ng/mL (20-250)
[2023-08-09 14:10] LABS: Folate 6.6 ng/mL (> or = 4.0); Vitamin B12 > 2000 pg/mL (200-900)
== END 2023-08-09 11:50 | disposition home or self-care (01) ==
LOC: HO.LAB 11:49
PROVIDERS: PCP Internal Medicine; Visit Provider Internal Medicine Gastroenterology
DX: K22.70 Barrett's esophagus without dysplasia (principal); E61.1 Iron deficiency; R53.83 Other fatigue; K75.81 Nonalcoholic steatohepatitis (NASH)
CPT/HCPCS: 36415; 80053; 82607; 82728; 82746; 85025; 99212

== ENCOUNTER 2023-11-05 10:41 | Outpatient (REF) | payer MEDICARE, SELFPAY ==
[2023-11-05 16:17] LABS: MANUAL DIFF FLAG NO
[2023-11-05 16:35] LABS: Basophils Absolute Auto 0.1 X10*3/uL (0.0-0.2); Basophils Percent Auto 1.4 % (0-2); Eosinophils Absolute Auto 0.4 X10*3/uL (0.0-0.4); Eosinophils Percent Auto 5.2 % (0-4); Hematocrit 40.3 % (42.0-52.0); Hemoglobin 13.6 g/dl (14.0-18.0); Imm Gran Abs Auto 0.03 X10*3/uL (0.00-0.03); Imm Gran Pct Auto 0.4 % (0.0-0.4); Lymphocytes Absolute Auto 1.5 X10*3/uL (1.2-4.9); Lymphocytes Percent Auto 21.6 % (20-40); Mean Corpuscular HGB Conc 33.7 g/dl (31.0-36.0); Mean Corpuscular Hemoglobin 31.7 pg (27.0-33.0); Mean Corpuscular Volume 93.9 fL (80.0-98.0); Mean Platelet Volume 11.9 fL (9.4-12.4); Monocytes Absolute Auto 0.5 X10*3/uL (0.1-1.2); Monocytes Percent Auto 7.7 % (2-11); Neutrophils Absolute Auto 4.4 x10*3/uL (2.0-8.3); Neutrophils Percent Auto 63.7 % (45-73); Platelet Count 236 X10*3/uL (160-400); Red Blood Count 4.29 X10*6/uL (4.60-5.80); Red Cell Distribution Width 12.9 % (11.0-16.0)
[2023-11-05 16:53] LABS: Alanine Aminotransferase 16 U/L (0-40); Albumin Level 4.7 g/dL (3.5-5.0); Alkaline Phosphatase 69 U/L (39-117); Anion Gap 14 (12-20); Aspartate Amino Transferase 18 U/L (5-37); Bilirubin Total 0.4 mg/dL (0.0-1.0); Blood Urea Nitrogen 13 mg/dL (9-16); Calcium 9.7 mg/dL (8.4-10.2); Carbon Dioxide 24 mmol/L (22-29); Chloride 108 mmol/L (96-108); Estimated Glomerular Filt Rate > 60; Glucose Random 90 mg/dL (60-115); Potassium 4.4 mmol/L (3.3-5.1); Sodium 142 mmol/L (135-145); Total Protein 7.2 g/dL (6.5-8.0)
[2023-11-05 17:11] LABS: TSH reflex Free T4 3.83 uIU/mL (0.32-4.0)
[2023-11-05 17:37] LABS: Prostate Specific Antigen Scr 0.89 ng/mL (<0.05-4.0)
[2023-11-06 04:34] LABS: ~HepC Num1 0.14 S/CO (0.00-0.79); ~Hepatitis C Antibody Nonreactive (Nonreactive)
[2023-11-16 13:08] LABS: Testosterone, Total 255 ng/dL (250-1100)
== END 2023-11-05 10:42 | disposition home or self-care (01) ==
LOC: HO.CHCLDS 10:41
PROVIDERS: Visit Provider Internal Medicine
DX: I10 Essential (primary) hypertension (principal); F51.01 Primary insomnia; E66.09 Other obesity due to excess calories; Z68.34 Body mass index [BMI] 34.0-34.9, adult; E87.1 Hypo-osmolality and hyponatremia; Z12.5 Encounter for screening for malignant neoplasm of prostate; N52.8 Other male erectile dysfunction
CPT/HCPCS: 36415; 80053; 84153; 84403; 84443; 85025; 86803

== ENCOUNTER 2024-02-06 10:48 | Outpatient (REF) | payer MEDICARE, SELFPAY ==
[2024-02-06 11:02] LABS: MANUAL DIFF FLAG NO
[2024-02-06 11:16] LABS: Basophils Absolute Auto 0.1 X10*3/uL (0.0-0.2); Basophils Percent Auto 1.5 % (0-2); Eosinophils Absolute Auto 0.3 X10*3/uL (0.0-0.4); Hematocrit 38.4 % (42.0-52.0); Hemoglobin 12.8 g/dl (14.0-18.0); Imm Gran Abs Auto 0.02 X10*3/uL (0.00-0.03); Imm Gran Pct Auto 0.3 % (0.0-0.4); Lymphocytes Absolute Auto 1.8 X10*3/uL (1.2-4.9); Lymphocytes Percent Auto 26.8 % (20-40); Mean Corpuscular HGB Conc 33.3 g/dl (31.0-36.0); Mean Corpuscular Hemoglobin 30.8 pg (27.0-33.0); Mean Corpuscular Volume 92.3 fL (80.0-98.0); Mean Platelet Volume 10.3 fL (9.4-12.4); Monocytes Absolute Auto 0.7 X10*3/uL (0.1-1.2); Monocytes Percent Auto 10.7 % (2-11); Neutrophils Absolute Auto 3.8 x10*3/uL (2.0-8.3); Neutrophils Percent Auto 56.7 % (45-73); Platelet Count 232 X10*3/uL (160-400); Red Blood Count 4.16 X10*6/uL (4.60-5.80); Red Cell Distribution Width 12.7 % (11.0-16.0); White Blood Count 6.7 X10*3/uL (4.8-10.8)
[2024-02-06 12:04] LABS: Magnesium 2.3 mg/dL (1.6-2.6)
[2024-02-06 12:24] LABS: Vitamin D 25-OH Total 54.4 ng/mL (>30)
[2024-02-06 12:32] LABS: Folate 8.8 ng/mL (> or = 4.0); Vitamin B12 1461 pg/mL (200-900)
[2024-02-06 13:13] LABS: Free T4 (Free Thyroxine) 0.92 ng/dL (0.71-1.85)
[2024-02-11 12:09] LABS: Testosterone, Total 277 ng/dL (250-1100)
[2024-02-12 06:23] LABS: Vitamin B1 125 nmol/L (8-30)
== END 2024-02-06 10:49 | disposition home or self-care (01) ==
LOC: HO.LAB 10:48
PROVIDERS: PCP Internal Medicine; Visit Provider Internal Medicine
DX: N52.9 Male erectile dysfunction, unspecified (principal); R53.83 Other fatigue; E66.9 Obesity, unspecified
CPT/HCPCS: 36415; 82306; 82607; 82746; 83735; 84403; 84425; 84439; 84443; 85025

== ENCOUNTER 2024-02-18 06:57 | Day surgery (SDC) | payer MEDICARE, SELFPAY ==
[2024-02-14 14:38] VITALS: BMI 33.3
[2024-02-18 07:28] VITALS: BMI 33.2
--- NOTE | 2024-02-18 07:41 | MHC.SHP ---
Pre-Procedural Eval Section A - 24 Hr Update-Section A only Date of Service: 02/18/24 Section B - Complete if H&P > 30 days Chief Complaint: Springer's esophagus without dysplasia Relevant Family History (Specify if Yes): No Relevant Social History: None Present Medications: see Short Stay Collaborative assessment Medical History: Significant History (iatal hernia Barretts esophagus Anemia Depression Elevated cholesterol HTN (hypertension)) History of Previous Operations: Relevant previous surgery/procedure and date(s) ( History of esophagogastroduodenoscopy (EGD) H/O colonoscopy) Allergies: Allergies Allergy/AdvReac Type Severity Reaction Status Date / Time bee pollen [BEE STINGS] Allergy Severe ANAPHYLAXIS Verified 08/09/23 11:56 Review of Systems Sugical H&P ROS: Negative: Constitution, Cardiovascular, Respiratory, Neurological, Psychiatric, Hem-Onc, Allergic/Immunologic, Gastrointestinal, Genitourinary, Musculoskeletal, Integumentary, Endocrine and Eyes/Ears/Nose/Throat Exam Surgical H&P Exam: Normal: HEENT, Normal: Heart, Normal: Lungs, Normal: Extremities, Normal: Abdomen, Normal: Skin and Normal: Neurological Plan Diagnosis/Plan: Unchanged I have reviewed the history and physical and performed a pertinent physical examination on my patient. No changes have occurred unless specified. Time Spent With Patient Time: Total time managing care of this patient today ____ minutes.
[2024-02-18] MEDS: Lactated Ringers 1,000 ML 80 ML IVCONT (07:43)
[2024-02-18 07:56] VITALS: BP 127/77; PULSE 57; RESP 18; TEMP 36.7; O2SAT 97
--- NOTE | 2024-02-18 08:10 | P.CONAN_ITS ---
HPI - Anesthesia Eval Consult details Narrative: 74 M for egd PMFSH Active Problems Active Problems: All Active Problems Fatigue (Acute) Iron deficiency (Acute) Springer's esophagus (Acute) Colonic polyp (Acute) Depression (Acute) Past Medical History Medical History Hiatal hernia Barretts esophagus Anemia Depression Elevated cholesterol HTN (hypertension) Family History Family History Father No problems noted. Mother No problems noted. Family history of problems with anesthesia: No Surgical History Surgical History History of esophagogastroduodenoscopy (EGD) H/O colonoscopy History of Problems with Anesthesia: No Social History Social History Are you a primary career counselor to a significant other at home: No Do you presently have visiting nurse or other home services: No Alcohol intake: current Alcohol intake frequency: does not drink Patient Tobacco Use Status: Former Tobacco user Tobacco use type: Cigarette Have you been hit, kicked, punched, or otherwise hurt by someone within the past year? If so, by whom?: No Are you DNR?: No Advance Directives: No Advance Directives Information Provided: Yes Recently lost weight without trying: No Nutrition Risks: No Nutritional Risk Meds Allergies Allergy/AdvReac Type Severity Reaction Status Date / Time bee pollen [BEE STINGS] Allergy Severe ANAPHYLAXIS Verified 02/18/24 08:04 Active Medications: Current Medications Lactated Ringer's (Lr) 1,000 mls @ 80 mls/hr IVCONT .[id number] JAI Last Admin: 02/18/24 07:43 Dose: 80 mls/hr Home Medications ?Medication ?Instructions ?Recorded ?Confirmed ?Last Taken ?Type amitriptyline 100 mg tablet 100 mg PO BEDTIME 02/11/20 02/14/24 Unknown History amlodipine 5 mg tablet 5 mg PO DAILY 02/11/20 02/14/24 02/18/24 History atorvastatin 40 mg tablet 40 mg PO BEDTIME 02/11/20 02/14/24 Unknown History ferrous sulfate 325 mg (65 mg 325 mg PO DAILY 02/11/20 02/14/24 12/13/20 History iron) tablet lisinopril 40 mg tablet 40 mg PO DAILY 02/11/20 02/14/24 Unknown History paroxetine HCl 40 mg tablet 40 mg PO DAILY 02/11/20 02/14/24 11/10/21 History terazosin 1 mg capsule 1 mg PO DAILY 02/11/20 02/14/24 Unknown History sennosides 8.6 mg tablet 17.2 mg PO DAILY 06/10/20 02/14/24 Unknown History trazodone 100 mg tablet 100 mg PO BEDTIME 12/27/20 02/14/24 Unknown History acetaminophen 500 mg tablet 0 mg PO 12/08/21 Unknown History celecoxib 200 mg capsule 200 mg PO BID 12/08/21 02/14/24 Unknown History Exam Height,Weight and Vital Signs: Height 5 ft 7 in Weight 212 lb Last Vital Signs Temp 98.1 F 02/18/24 07:56 Pulse 57 02/18/24 07:56 Resp 18 02/18/24 07:56 BP 127/77 02/18/24 07:56 Pulse Ox 97 02/18/24 07:56 O2 Del Method Room Air 02/18/24 07:56 Airway Mallampati Class: II TM Dist: >3cm Neck ROM: Full Loose/Missing/Broken Teeth: Yes (poor dentition) Assessment and Plan Assessment Anesthesia Assessment: Anesthesia Plan Discussed and Chart Reviewed Final Anesthetic Review Family History of Problems with Anesthesia: No History of Problems with Anesthesia: No NPO: Yes ASA Class: III Final Preanesthetic Review: No Changes in Pt Med Stat, Meds/Allgs Chart Reviewed, Consent Obtained/Reviewed and Anes Risks/Benef Reviewed Patient Risk: Intermediate Procedure Risk: Low Anesthetic Plan Anesthetic Plan: MAC: Disposition: Standard PACU
--- NOTE | 2024-02-18 09:08 | W.PM.OPN ---
Operative Note Operative Note Date of Service: 02/18/24 Narrative: Procedure Description: EGD Indication: Barretts esophagus Anesthesia: MAC FLEXIBLE TRANSORAL UPPER GASTROINTESTINAL ENDOSCOPY UPPER ENDOSCOPY Consent: Indications for the procedure and potential complications of bleeding, perforation, reaction to medications and missed diagnosis were discussed with the patient and informed consent was obtained. Instrument: Olympus GIF H 190 J mid size upper endoscope Monitoring: Vital signs and clinical assessment, continuous EKG monitoring, Pulse oximetry, Carbon Dioxide monitoring and blood pressure monitoring were done throughout the procedure. Procedure: The patient was placed in the left lateral decubitis position and pre-procedure medications were administered and a bite block was placed. The endoscope was inserted into the mouth and advanced under direct vision to the third part of duodenum. A careful inspection was made as the upper endoscope was withdrawn including a retroflexed examination of the proximal stomach; Findings and interventions are described below. Findings: Larynx:normal Esophagus: GE junction at 34? cm, diaphragm hiatus at 42 cm, consistent with 8 cm hiatal hernia. Long segment of salmon pink mucosa noted C10M11, WATS brushings taken, as well as biopsy every 2 cm 4 quadrants per [facility] protocol. No discrete nodular lesions or masses seen with blue light. Stomach: Polypoid lesion seen in mid stomach with irregular, coarse surface. this was injected with epinephrine and then removed with cold snare with x 3 clips applied for hemostasis. Grade 3 flap valve on retroflexed examination of the cardia. Polyp retrieved with net Duodenum: Normal bulb and descending duodenum, Intervention: Biopsies as noted above with brushings for WATS sampling, Cold snare polypectomy and clips, net Impression/Findings: Barretts esophagus hiatal hernia stomach polyp PLAN: await bx repeat surveillance pending results
[2024-02-18 09:15] VITALS: BP 120/74; PULSE 63; RESP 18; TEMP 36.1; O2SAT 93
[2024-02-18 09:30] VITALS: BP 109/73; PULSE 54; RESP 16; O2SAT 96
[2024-02-18 09:43] VITALS: BP 119/73; PULSE 56; RESP 16; TEMP 36.1; O2SAT 98
== END 2024-02-18 10:00 | disposition home or self-care (01) ==
PROVIDERS: PCP Internal Medicine; Visit Provider Internal Medicine Gastroenterology
PROC: 0DJ08ZZ Inspection of Upper Intestinal Tract, Via Natural or Artificial Opening Endoscopic (ICD-10-PCS; CPT 43235; principal; 2024-02-18 08:20)
DX: K22.70 Barrett's esophagus without dysplasia (principal); K31.7 Polyp of stomach and duodenum; B96.81 Helicobacter pylori [H. pylori] as the cause of diseases classified elsewhere; K44.9 Diaphragmatic hernia without obstruction or gangrene; D64.9 Anemia, unspecified; I10 Essential (primary) hypertension; E78.00 Pure hypercholesterolemia, unspecified; E61.1 Iron deficiency; F32.A Depression, unspecified; Z79.899 Other long term (current) drug therapy; Z87.891 Personal history of nicotine dependence
CPT/HCPCS: 43251; 43239; 88305; 88313; 88342; J0171; J2003; J2704

== ENCOUNTER → 2024-02-18 06:57 | Outpatient (BNV) | payer MEDICARE, SELFPAY | PROVIDERS: PCP Internal Medicine; Visit Provider Internal Medicine Gastroenterology | DX: K22.70 Barrett's esophagus without dysplasia (principal); K31.7 Polyp of stomach and duodenum | CPT/HCPCS: 43236; 43239; 43251 ==

== ENCOUNTER 2024-03-02 09:58 | Outpatient (AMB) | payer MEDICARE, SELFPAY ==
--- NOTE | 2024-03-02 09:59 | A.OFFVIS_ITS ---
Intake Visit Reasons: S/p EGD, post op Dr. Martin Intake Note: Axel presents as a telehealth to go over results to his EGD. CC: High School Assistant Principal Required: No Allergies bee pollen [BEE STINGS] Allergy (Severe, Verified 02/18/24 08:04) ANAPHYLAXIS HPI HPI S/p EGD, post op Dr. Martin: Details: 73 yr old m w hx of high chol, HTN called for f/u for barretts RECAP: He had microcytic anemia, HGB 11, MCV 79, Fe sat 5% and ferritin 14 from 09/2018 he is on aspirin he said he has had anemia for few years never seen blood in stool or melena had colonoscopy 5 yrs ago and had few polyps removed--told repeat due in 3 yrs never had upper GI scope not on nsaid or other blood thiner EGD/colonoscopy--10/06/18-- erosive gastritis, shefali erosions, large hiatal hernia, barretts esophagus, tubular adenoma EGD 10/2019--barretts. wats and bx indefinite for dysplasia, posisble favor colonoscopy--incomplete, poor prep, diverticulosis EGD/colonoscopy-- 05/2020-- polyp from cecum, barretts, c10M11, no dysplasia on WATS or biopsy ([facility] protocol) EGD: 12/2020--7 cm hiatal hernia. Long segment of salmon pink mucosa noted [id number]--woip of LGD, and multiple areas of indefinite dysplasia both on path and WATS3D EGD 11/2021- WATS 3D with adequate cellularity, neg for dysplasia, reactive changes, path with no dysplasia and on area with indefinite dysplasia at 26 cm EGD 03/01- Long segment Barretts, no dysplasia on path BUT WATS with LGD at 26- 30 cm, other areas were neg for dysplasia, also pos for H pylori INTERIM: He is taking PPI BID as recommended just got the treatment for H pylori no n/v weight stable. appetite is good no abdo pain Assessments 1. Springer's esophagus with LGD on recent WATS 2. H pylori pos 1/Advised RFA would be recommended next step, other option would be hybrid APC, but he does not want any invasive treatment right now, prefers to repeat EGD in 4-6 months [facility] Medical History Hiatal hernia Barretts esophagus Anemia Depression Elevated cholesterol HTN (hypertension) Surgical History History of esophagogastroduodenoscopy (EGD) H/O colonoscopy Family History Father No problems noted. Mother No problems noted. Social History Are you a primary dialysis patient care technician to a significant other at home: No Do you presently have visiting nurse or other home services: No Alcohol intake: current Alcohol intake frequency: does not drink Patient Tobacco Use Status: Former Tobacco user Tobacco use type: Cigarette Telehealth Telehealth Telehealth Platform: Doximity Location of provider rendering services: practice address Location of patient: address on file Patient Identification confirmed using: Name, : Yes Telehealth method: voice only Patient verbally consented to treatment: Yes Patient verbally consented to billing insurance company: Yes Minutes spent on Phone/Video with Pt.: 8 Assessment & Plan Assessment & Plan (1) Springer's esophagus: Code(s): K22.70 - Springer's esophagus without dysplasia Category: Medical Plan: see above Coding Level of Care Code Tele Est Pt Level 3 (95502) Diagnoses Springer's esophagus K22.70
== END 2024-03-02 10:36 | disposition home or self-care (01) ==
LOC: HO.HGI 09:59
PROVIDERS: PCP Internal Medicine; Visit Provider Internal Medicine Gastroenterology
DX: K22.70 Barrett's esophagus without dysplasia (principal)
CPT/HCPCS: G2012

== ENCOUNTER → 2024-03-02 09:58 | Outpatient (BNVA) | payer MEDICARE, SELFPAY | PROVIDERS: PCP Internal Medicine; Visit Provider Internal Medicine Gastroenterology ==

== ENCOUNTER → 2024-03-24 07:50 | Outpatient (BNV) | payer MEDICARE, SELFPAY | PROVIDERS: Absent Provider Internal Medicine; PCP Internal Medicine; Visit Provider Internal Medicine Medical Oncology | DX: D64.9 Anemia, unspecified (principal) | CPT/HCPCS: 99204 ==

== ENCOUNTER 2024-07-01 09:30 | Outpatient (REF) | payer MEDICARE, SELFPAY ==
[2024-07-01 14:36] LABS: Alanine Aminotransferase 18 U/L (0-40); Albumin Level 4.5 g/dL (3.5-5.0); Alkaline Phosphatase 98 U/L (39-117); Anion Gap 11 (12-20); Aspartate Amino Transferase 25 U/L (5-37); Bilirubin Total 0.5 mg/dL (0.0-1.0); Blood Urea Nitrogen 17 mg/dL (9-16); Calcium 9.4 mg/dL (8.4-10.2); Carbon Dioxide 24 mmol/L (22-29); Chloride 108 mmol/L (96-108); Estimated Glomerular Filt Rate > 60; Glucose Random 78 mg/dL (60-115); Sodium 139 mmol/L (135-145); Total Protein 7.5 g/dL (6.5-8.0)
== END 2024-07-01 09:31 | disposition home or self-care (01) ==
LOC: HO.CHCLDS 09:30
PROVIDERS: Visit Provider Internal Medicine
DX: M25.562 Pain in left knee (principal)
CPT/HCPCS: 36415; 80053; 84550

== ENCOUNTER 2024-07-20 07:52 | Outpatient (AMB) | payer MEDICARE, SELFPAY ==
--- OUTSIDE RECORDS SUMMARY | 2024-07-20 07:55 | XMS_ITS | Encounter Summary ---
Author Organization [employer] Address [address] [place] [address] [address] [place] [address] Care Team Providers Care Rn Endoscopy Name Role Phone Shannan Houston MD Primary Care Provider Encounter Details Date Type Department Care Team (Late Contact Info) Description 01/31/2023 Abstract [facility] MEDICINE [address] [place] [address] Shannan Houston MD [address] [place], [place] [phone] Social History Tobacco Use Types Packs/Day Years Used Date Smoking Tobacco: Former Cigarettes 1 8 Smokeless Tobacco: Never Depression Answer Date Recorded Patient Health Questionnaire-9 Score 4 03/26/2022 Depression Answer Date Recorded Patient Health Questionnaire-2 Score 2 03/26/2022 Sex and Gender Information Value Date Recorded Sex Assigned at Male 02/05/2022 10:24 AM EDT Legal Sex Male 10:24 AM EDT Gender Identity Male 02/05/2022 10:24 AM EDT Sexual Orientation Straight 02/05/2022 10 :24 AM EDT documented as of this encounter Plan of Treatment Upcoming Encounters Date Type Department Care Team (Late st Contact Info) Description 07/29/2024 8:00 AM EDT Office Visit [facility] CHC ADULT DENTAL [address] [place], [place] [phone] Giovani Lin DMD [address] [place], [place] [phone] documented as of this encounter Goals Goal Patient Goal Type Associated Problems Recent Progress Patient-Stated? Author Blood Pressure < 140/90 Blood Pressure 134/78( 025 9:03 AM EDT) No Bigg Small, PharmD documented as of this encounter Visit Diagnoses Not on filedocumented in this encounter Additional Health Concerns Assessment Noted Time PHQ-9 Depression Total Score: 4 03/26/20 22 9:28 AM EST documented as of this encounter Care Teams Rn Endoscopy Relationship Specialty Start Date End Date Shannan Houston MD [address] [place] [phone] PCP - General Internal Medicine 09/27/16 documented as of this encounter
--- OUTSIDE RECORDS SUMMARY | 2024-07-20 07:55 | XMS_ITS | Encounter Summary ---
Author Organization [employer] Address [address] [place] [address] [address] [place] [address] Care Team Providers Care Automation Engineer Name Role Phone Shannan Houston MD Primary Care Provider Encounter Details Date Type Department Care Team ([facility] st Contact Info) Description 02/21/2023 Orders Only [facility] CHC MED & PEDS [address] [place], [place] [phone] Shannan Houston MD [address] [place] [address] Screening for prostate cancer (Primary Dx) Social History Tobacco Use Types Packs/Day Years [...] AM EDT documented as of this encounter Miscellaneous Notes * Result Encounter Note - Shannan Houston MD - 02/21/2023 8:59 PM EST FYI. Pt was called. No answer. Message left to call the office back at his convenience. Persistent anemia, pt has lost 1 pt of his Hb level which could explain his fatigue. Has h/o Springer's esophagus and is scheduled for a repeat Upper endoscopy. He is also due for a repeat Colonoscopy. Given that his iron reserve was adequate last time we checked in May 24, I will refer to Hematology for further assessment and treatment. * Result Encounter Note - Shannan Houston MD - 02/21/2023 8:59 PM EST The testosterone level is pending. documented in this encounter Plan of Treatment Upcoming Encounters Date Type Department Care Team (Late st Contact Info) Description 07/29/2024 8:00 AM EDT Office Visit [facility] CHC ADULT DENTAL [address] [place] [address] Giovani Lin, DMD [address] [place] [address] documented as of this encounter Goals Goal Patient Goal Type Associated Problems Recent Progress Patient-Stated? Author Blood Pressure < 140/90 Blood Pressure 134/78( 025 9:03 AM EDT) No Bigg Small, PharmD documented as of this encounter Procedures Procedure Name Priority Date/Time Associated Diagnosis Comments T4, FREE Routine 02/06/2024 11:01 AM EDT Screening for prostate cancer PSA, SCREEN Routine 11/05/2023 10:44 AM EDT Screening for prostate cancer VITAMIN B12/FOLATE, SERUM PANEL Routine 08/09/2023 12:20 PM EDT Screening for prostate cancer CBC WITH AUTO DIFFERENTIAL Routine 08/09/2023 12:20 PM EDT Screening for prostate cancer FERRITIN Routine 08/09/2023 12:20 PM EDT Screening for prostate cancer COMPREHENSIVE METABOLIC PANEL Routine 08/09/2023 12:20 PM EDT Screening for prostate cancer documented in this encounter Results * T4, Free (02/06/2024 11:01 AM EDT) Pathologist [facility] Free T4 (Free Thyroxine) 0.92 0.71 - 1.85 ng/dL [facility] 02/06/2024 11:0 1 AM EDT 02/06/2024 11:01 AM EDT Shannan Houston MD LAB BLOOD ORDERABLES Final Result Performing Organization Address City/[facility]/ZIP Co de Phone Number [facility] [address] [place] [phone] * PSA, Screen (11/05/2023 10:44 AM EDT) [facility] PSA, Total 0.89 <0.05 - 4.0 ng/mL [facility] Comment:PSA methodology: Stoney Aguilera i ChemiluminescentMicroparticle Immunoassay (CMIA) Blood Venous blood specimen / Unknown 11/05/2023 10:44 AM EDT 11/05/2023 4:15 PM EDT Shannan Houston MD LAB BLOOD ORDERABLES Final Result Performing Organization Address City/[facility] Co de Phone Number [facility] [address] [place] [phone] * (ABNORMAL) Vitamin B12/Folate, Serum Panel (08/09/2023 12:20 PM EDT) [facility] Vitamin B12 >2,000(H ) 200 - 900 pg/mL [facility] Comment:NORMAL 200-900 PG/ML INDETERMINATE 160-199 PG/ML DEFICIENT < 160 PG/ML Folate 6.6 > or = 4.0 ng/mL [facility] Comment:Reference Values:> o r = 4.0 ng/mL< 4.0 ng/mL suggests folate deficiency Methotrexate, aminopterin and folinic acid(leucovorin) are chemotherapeutic agents whose molecularstructures are similar to folate; therefore, the Architectfolate assay cannot be used for patients using these drugs. 08/09/2023 12:2 0 PM EDT 08/09/2023 12:20 PM EDT us Generic External Data Provider LAB BLOOD ORDERAB LES Final Result Performing Organization Address [facility]/ZIP Co de Phone Number [facility] [address] [place] [phone] [phone] * Ferritin (08/09/2023 12:20 PM EDT) Pathologist [facility] Ferritin 228 20 - 250 ng/mL [facility] 08/09/2023 12:2 0 PM EDT 08/09/2023 12:20 PM EDT Generic External Data Provider LAB BLOOD ORDERAB LES Final Result Performing Organization Address [facility] de Phone Number [facility] [address] [place] [phone] * (ABNORMAL) Comprehensive Metabolic Panel (08/09/2023 12:20 PM EDT) Sodium 134(L) 135 - 145 mmol/L [facility] Potassium 4.3 3.3 - 5.1 mmol/L [facility] Chloride 104 96 - 108 mmol/L [facility] Carbon Dioxide 21(L) 22 - 29 mmol/L [facility] Anion Gap 13 12 - 20 [facility] Urea Nitrogen (BUN) 20(H) 9 - 16 mg/dL [facility] Creatinine, Serum 0.95 0.5 - 1.4 mg/dL [facility] Estimated Glomerular Filt Rate >60 [facility] Comment:NOTE: For -Am erican individuals, multiply the result by 1.210.Chronic Kidney Disease: Estimated GFR < 60 mL/min/1.18b7Hlcpso Kidney Disease: Estimated GFR < 15 mL/min/1.73m2 Glucose 90 60 - 115 mg/dL [facility] Calcium 9.2 8.4 - 10.2 mg/dL [facility] Bilirubin, Total 0.5 0.0 - 1.0 mg/dL [facility] Aspartate Amino Transferase 16 5 - 37 U/L [facility] Alanine Aminotransferase 15 0 - 40 U/L [facility] Total Protein 7.4 6.5 - 8.0 g/dL [facility] Albumin Level 4.6 3.5 - 5.0 g/dL [facility] Alkaline Phosphatase 86 39 - 117 U/L [facility] 08/09/2023 12:2 0 PM EDT 08/09/2023 12:20 PM EDT us Generic External Data Provider LAB BLOOD ORDERAB LES Final Result [facility] [address] [place] [phone] * (ABNORMAL) CBC auto differential (08/09/2023 12:20 PM EDT) White Blood Count 7.5 4.8 - 10.8 X10*3/uL [facility] Red Blood Count 4.38(L) 4.60 - 5.80 X10*6/uL [facility] Hemoglobin 13.7(L) 14.0 - 18.0 g/dl [facility] Hematocrit 39.2(L) 42.0 - 52.0 % [facility] Mean Corpuscular Volume 89.5 80.0 - 98.0 fL [facility] Mean Corpuscular Hemoglobin 31.3 27.0 - 33.0 pg [facility] Mean Corpuscular HGB Conc 34.9 31.0 - 36.0 g/dl [facility] Red Cell Distribution Width 13.4 11.0 - 16.0 % [facility] Platelet Count 256 160 - 400 X10*3/uL [facility] Mean Platelet Volume 10.8 9.4 - 12.4 fL [facility] Neutrophils Percent Auto 60.1 45 - 73 % [facility] Imm Gran Pct Auto 0.4 0.0 - 0.4 % [facility] Lymphocytes Percent Auto 24.3 20 - 40 % [facility] Monocytes Percent Auto 9.7 2 - 11 % [facility] Eosinophils Percent Auto 4.0 0 - 4 % [facility] Basophils Percent Auto 1.5 0 - 2 % [facility] NRBC Pct Auto 0.0 0.0 - 0.2 /100WBC [facility] Neutrophils Absolute Auto 4.5 2.0 - 8.3 x10*3/uL [facility] Imm Gran Abs Auto 0.03 0.00 - 0.03 X10*3/uL [facility] Lymphocytes Absolute Auto 1.8 1.2 - 4.9 X10*3/uL [facility] Monocytes Absolute Auto 0.7 0.1 - 1.2 X10*3/uL [facility] Eosinophils Absolute Auto 0.3 0.0 - 0.4 X10*3/uL [facility] Basophils Absolute Auto 0.1 0.0 - 0.2 X10*3/uL [facility] NRBC Abs Auto 0.000 0.0 - 0.012 X10*3/uL [facility] 08/09/2023 12:2 0 PM EDT 08/09/2023 12:20 PM EDT us Generic External Data Provider LAB BLOOD ORDERAB LES Final Result Performing Organization Address City/State/[facility] Co de Phone Number [facility] [address] [place] [phone] documented in this encounter Visit Diagnoses Diagnosis Screening for prostate cancer- Primary Special screening for malignant neoplasm of prostate documented in this encounter Additional Health Concerns Assessment Noted Time PHQ-9 Depression Total Score: 4 03/26/20 22 9:28 AM EST documented as of this encounter Care Teams Automation Engineer Relationship Specialty Start Date End Date Shannan Houston MD [address] [place] [place] [phone] PCP - General Internal Medicine 09/27/16 documented as of this encounter
--- OUTSIDE RECORDS SUMMARY | 2024-07-20 07:55 | XMS_ITS | Encounter Summary ---
Author Organization [employer] Address [address] [place] [address] [address] [place] [address] Care Team Providers Care Engineering Project Designer Name Role Phone Shannan Houston MD Primary Care Provider Reason for Visit * Reason Onset Date Comments Results 02/06/2024 Encounter Details Date Type Department Care Team ([facility] st Contact Info) Description 02/06/2024 Telephone [facility] MEDICINE [address] [place] [address] Shannan Houston MD [address] [place] [address] Results Social History Tobacco Use Types Packs/Day Years Used Date Smoking Tobacco: Former Cigarettes 1 8 Smokeless Tobacco: Never Alcohol Answer Date Recorded Frequency of Alcohol Consumption Not on file 02/06/2024 Average Number of Drinks Not on file 024 Frequency of Binge Drinking Not on file 01/08 Score 0 02/06/2024 Depression Answer Date Recorded Patient Health Questionnaire-9 Score 0 02/06/2024 Patient Health Questionnaire-9 Score 0 02/06/2024 Last PHQ-9: Questionnaire Data Not on file 1 Depression Answer Date Recorded Patient Health Questionnaire-2 Score 0 02/06/2024 Sex and Gender Information Value Date Recorded Sex Assigned at Male 02/05/2022 10:24 AM EDT Legal Sex Male 10:24 AM EDT Gender Identity Male 02/05/2022 10:24 AM EDT Sexual Orientation Straight 02/05/2022 10 :24 AM EDT documented as of this encounter Miscellaneous Notes * Telephone Encounter - Shannan Houston MD - 02/06/2024 8:20 PM EDT Please to previous message * Telephone Encounter - Pako Aguilera - 02/06/2024 3:11 PM EDT TC from pt requesting call back regarding Results. Type of results: Labs Date when done: 02/06/24 Facility: [facility] Labs documented in this encounter Plan of Treatment Upcoming Encounters Date Type Department Care Team (Late st Contact Info) Description 07/29/2024 8:00 AM EDT Office Visit [facility] CH[facility] ADULT DENTAL [address] [place], [place] [phone] Giovani Lin, DMD [address] [place], [place] [phone] documented as of this encounter Goals Goal Patient Goal Type Associated Problems Recent Progress Patient-Stated? Author Blood Pressure < 140/90 Blood Pressure 134/78( 025 9:03 AM EDT) No DellogBigg khanna, PharmD documented as of this encounter Visit Diagnoses Not on filedocumented in this encounter Additional Health Concerns Assessment Noted Time PHQ-9 Depression Total Score: 0 02/06/20 24 9:22 AM EDT documented as of this encounter Care Teams Engineering Project Designer Relationship Specialty Start Date End Date Shannan Houston MD [address] [place] [phone] PCP - General Internal Medicine 09/27/16 documented as of this encounter
--- OUTSIDE RECORDS SUMMARY | 2024-07-20 07:55 | XMS_ITS | Encounter Summary ---
Author Organization [employer] Address [address] [place] [address] Care Team Providers Care Work Ticket Distributor Name Role Phone Shannan Houston MD Primary Care Provider [phone] Reason for Referral * Consultation (Routine) - Closed Specialty Diagnoses / Procedures Referred By Contac t Referred To Contact Hematology and Oncology Diagnoses Other fatigue Microcytic anemia Shannan Houston MD [address] [place] [address] Phone: tel: fax: Dee Buthcer MD [address] [place] [address] Phone: tel: Referral ID Status Reason Start Date Expiration Date V isits Requested Visits Authorized [id number] Closed Specialty Services Required 02/06/2024 02/05/2025 1 1 Encounter Details Date Type Department Care Team ([facility] st Contact Info) Description 02/06/2024 Orders Only [facility] [address] [place], [place] [phone] Shannan Houston MD [address] [place] [address] Other fatigue (Primary Dx); Microcytic anemia Social History Tobacco Use Types Packs/Day Years [...] Description 07/29/2024 8:00 AM EDT Office Visit [facility] ADULT DENTAL [address] [place] [address] Giovani Lin, DMD [address] [place] [address] Scheduled Referrals Name Type Priority Associated Diagnoses Order Schedule Referral to Hematology / Oncology Outpatient Referral Routine Other fatigue Microcytic anemia Expected: 02/06/2024 (Approximate), Expires: 02/05/2025 documented as of this encounter Goals Goal Patient Goal Type Associated Problems Recent Progress Patient-Stated? Author Blood Pressure < 140/90 Blood Pressure 134/78( 025 9:03 AM EDT) No Dellogono, Bigg, PharmD documented as of this encounter Procedures Procedure Name Priority Date/Time Associated Diagnosis Comments SURGICAL PATHOLOGY Routine 05/25/2020 3:09 PM EST HM COLONOSCOPY Routine 05/25/2020 3:06 PM EST documented in this encounter Results * Surgical Pathology (05/25/2020 3:09 PM EST) us Historical Provider LAB PATHOLOGY ORDERABLES Final Result * Hm Colonoscopy (05/25/2020 3:06 PM EST) us Historical Provider HEALTH MAINTENANCE Final Result documented in this encounter Visit Diagnoses Diagnosis Other fatigue- Primary Microcytic anemia Unspecified iron deficiency anemia documented in this encounter Additional Health Concerns Assessment Noted Time PHQ-9 Depression Total Score: 0 02/06/20 24 9:22 AM EDT documented as of this encounter Care Teams Work Ticket Distributor Relationship Specialty Start Date End Date Shannan Houston MD [address] [place] [phone] PCP - General Internal Medicine 09/27/16 documented as of this encounter
--- OUTSIDE RECORDS SUMMARY | 2024-07-20 07:55 | XMS_ITS | Clinical Summary ---
Author Organization [employer] Address [address] [place] [address] [address] [place] [address] Care Team Providers Care Meat Apprentice Name Role Phone Shannan Houston MD Primary Care Provider Allergies No known active allergies Medications acetaminophen (Tylenol) 500 MG tablet take 1 tablet (500MG) by oral route every 6 hours as needed 12/06/19 21 Active aspirin 81 MG EC tablet take 1 Tablet by Oral route once a day 12/19/19 19 Active docusate sodium (Colace) 100 MG capsule take 1 capsule by oral route every day at bedtime as needed for constipation 10/14/19 20 Active pantoprazole (ProtoNix) 40 MG EC tablet Take 1 tablet by mouth 1 (one) time each day. 06/05/19 22 Active Blood Pressure Monitor kit Use to check blood pressure daily 1 kit 09/01/19 23 Active EPINEPHrine (Epipen) 0.3 MG/0.3ML injection syringeIndicati ons:Allergic reaction to bee sting Inject 0.3 mL (0.3 mg) as directed 1 (one) time for 1 dose. 0.3 mL 09/01/19 23 Active amitriptyline (Elavil) 100 MG tablet TAKE ONE TABLET EVERY NIGHT AT BEDTIME 90 tablet 3 09/03/19 24 Active Additional Information Patient not taking.Reported on 06/08/2024 Sod Fluoride-Potass ium Nitrate 1.1-5 % pasteIndication s:Dental caries [place] teeth for 2 minutes, morning and night. Spit, do not rinse. Do not eat or drink anything for 30 minutes following brushing. 112 g 3 10/14/19 24 Active lisinopril 40 MG tabletIndicatio ns:Essential (primary) hypertension TAKE ONE TABLET EVERY MORNING 90 tablet 3 11/26/19 24 Active Sodium Fluoride 5000 Sensitive 1.1-5 % gel [place] teeth for 2 minutes, morning and night. Spit, do not rinse. Do not eat or drink anything for 30 minutes following brushing. 12/10/19 24 Active vardenafil (Levitra) 20 MG tabletIndicatio ns:Erectile disorder Take 1 tablet (20 mg) by mouth if needed each day for erectile dysfunction. 10 tablet 02/06/20 24 Active atorvastatin (Lipitor) 40 MG tabletIndicatio ns:Hypercholest erolemia TAKE ONE TABLET EVERY MORNING 90 tablet 1 02/26/20 24 Active senna (Senokot) 8.6 MG tabletIndicatio ns:Slow transit constipation TAKE TWO TABLETS EVERY DAY AT BEDTIME 180 tablet 1 02/26/20 24 Active tetracycline 500 MG capsule 02/27/20 24 Active metroNIDAZOLE (Flagyl) 500 MG tablet 02/27/20 24 Active celecoxib (CeleBREX) 200 MG capsuleIndicati ons:Chronic pain syndrome TAKE ONE CAPSULE TWICE DAILY IN THE MORNING AND AT BEDTIME 60 capsule 3 04/28/19 25 Active ferrous sulfate (FeroSul) 325 (65 Fe) MG tablet TAKE ONE TABLET EVERY MORNING 90 tablet 1 05/26/19 25 Active PARoxetine (Paxil) 40 MG tablet TAKE ONE TABLET EVERY MORNING 30 tablet 5 06/01/19 25 Active traZODone (Desyrel) 100 MG tabletIndicatio ns:Primary insomnia TAKE ONE TABLET EVERY NIGHT AT BEDTIME 30 tablet 5 06/01/19 25 Active terazosin (Hytrin) 1 MG capsuleIndicati ons:Autonomic neuropathy in diseases classified elsewhere TAKE ONE CAPSULE EVERY NIGHT AT BEDTIME 30 capsule 5 06/01/19 25 Active amLODIPine (Norvasc) 10 MG tablet TAKE ONE TABLET EVERY MORNING 90 tablet 3 06/27/19 25 Active lidocaine (Xylocaine) 5 % ointmentIndicat ions:Acute pain of left knee Apply topically Once per day. 50 g 1 07/02/19 25 2025 Active amLODIPine (Norvasc) 10 MG tablet TAKE ONE TABLET EVERY MORNING 90 tablet 3 07/04/19 24 2024 Discontinued predniSONE (Deltasone) 20 MG tabletIndicatio ns:Acute pain of left knee Take 2 tablets (40 mg) by mouth Once per day for 5 days. 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 Allergic reaction to bee sting 12/25/2017 Microcytic anemia 05/22/2017 Peripheral neuropathy due to metabolic disorder 10/25/2016 Mixed anxiety and depressive disorder 09/27/2016 Numbness of lower limb 09/27/2016 Hypertensive disorder 04/08/2013 Resolved Problems Problem Noted Date Diagnosed Date Resolved Date Obesity complicating childbirth 09/05/2021 02/06/2024 Encounters Date Type Department Care Team Description 07/08/2024 8:00 AM EDT Office Visit [facility] ADULT D[facility]AL [address] [place] [address] Giovani Lin DMD Fracture of removable partial denture (Primary Dx) 07/01/2024 9:00 AM EDT Office Visit [facility] MED & PEDS [address] [place] [address] Shannan Houston MD Springer's esophagus with dysplasia (Primary Dx); Primary hypertension; Normochromic normocytic anemia; Acute pain of left knee 07/01/2024 Travel 06/30/2024 2:30 PM EDT Office Visit [facility] AD[facility] [address] [place] [address] Giovani Lin DMD Fracture of removable partial denture (Primary Dx) 06/26/2024 Refill [facility] [address] [place] [address] Shannan Houston MD 06/24/2024 Patient Outreach [facility] [address] [place] [address] Shannan Houston MD Pre-visit Planning ([facility] unable to reach [facility]) 06/17/2024 8:00 AM EDT Office Visit [facility] ADULT DENTAL [address] [place] [phone] Giovani Lin DMD Ulcer of buccal mucosa (Primary Dx) 06/08/2024 8:00 AM EST Office Visit [facility] ADULT D[facility] [address] [place] [address] Evy Harrison Dental caries (Primary Dx) 05/30/2024 Refill [facility] PED[facility] [address] [place] [address] Shannan Houston MD Primary insomnia; Autonomic neuropathy in diseases classified elsewhere 05/26/2024 Refill [facility] [address] [facility] [place] [address] Shannan Houston MD 04/27/2024 Refill [facility] [address] [place] [address] Shannan Houston MD Chronic pain syndrome from Last 3 Months Immunizations Name Administration Dates Next Due Influenza, High Dose Seasonal, Preservative Free 02/06/2024 Pneumococcal Conjugate PCV 13 12/25/2017 Pneumococcal Conjugate PCV 20 11/05/2023 Tdap 12/25/2017 Zoster, Recombinant 07/04/2018,05/09/2018 Social History Tobacco Use Types Packs/Day Years Used Date Smoking Tobacco: Former Cigarettes 1 8 Smokeless Tobacco: Never Tobacco Cessation:Counseling Given: Not Answered Alcohol Use Standard Drinks/Week Comments Defer 0 (1 standard drink = 0.6 oz pur e alcohol) Alcohol Answer Date Recorded Frequency of Alcohol Consumption Not on file 02/06/2024 Average Number of Drinks Not on file 024 Frequency of Binge Drinking Not on file 01/08 Score 0 02/06/2024 Depression Answer Date Recorded Patient Health Questionnaire-9 Score 0 02/06/2024 Patient Health Questionnaire-9 Score 0 02/06/2024 Last PHQ-9: Questionnaire Data Not on file 1 Housing Stability Answer Date Recorded What is your housing situation today? I have jade lundberg 07/01/[address] you li ve. Do you have problems with any of the following? None of the above 07/01/2024 Food Insecurity Answer Date Recorded Within the past 12 months, y ou worried that your food would run out before you got money to buy more: Sometimes True 2024 Within the past 12 months,th e food you bought just didn't last and you didn't have enough money to get more: Never True 07/01/2024 Transportation Answer Date Recorded In the past 12 months, has l ack of transportation kept you from medical appts, meetings, work or from getting things needed for daily living? No 07/01/2024 Utilities Answer Date Recorded In the past 12 months, has t he electric, gas, oil or water company threatened to shut off services in your home? No 07/01/2024 Depression Answer Date Recorded Patient Health Questionnaire-2 Score 0 02/06/2024 Internet Access Answer Date Recorded Internet Access Q1 No 07/01/2024 Internet Access Q2 Internet/Wi-Fi access is not available where I live 07/01/2024 Sex and Gender Information Value Date Recorded Sex Assigned at Male 02/05/2022 10:24 AM EDT Legal Sex Male 10:24 AM EDT Gender Identity Male 02/05/2022 10:24 AM EDT Sexual Orientation Straight 02/05/2022 10 :24 AM EDT Last Filed Vital Signs Vital Sign Reading Time Taken Comments Blood Pressure 134/78 07/01/2024 9:03 AM EDT Pulse 72 07/01/2024 9:03 AM EDT Temperature 36.7 ??C (98 ??F) 07/01/2024 9:03 AM EDT Respiratory Rate 20 07/01/2024 9:03 AM EDT Oxygen Saturation 98% 07/01/2024 9:03 AM EDT Inhaled Oxygen Concentration - - Weight 98 kg (216 lb) 07/01/2024 9:03 AM EDT Height 169 cm (5' 6.54 ) 07/01/2024 9:03 AM EDT Body Mass Index 34.3 07/01/2024 9:03 AM EDT Plan of Treatment Upcoming Encounters Date Type Department Care Team (Late st Contact Info) Description 07/29/2024 8:00 AM EDT Office Visit [facility] ADULT DENTAL [address] [place] [address] Giovani Lin, AKBAR [address] [place] [address] Health Maintenance Due Date Last Done Comments CT Colonography 1951 FIT DNA/Cologuard 1950 FIT 1950 FOBT 1950 Sigmoidoscopy 1950 Colonoscopy 05/25/2023 05/25/2020, 05/10/2020, 10/22/2019 Colorectal Cancer Screening 05/25/2023 COVID-19 Vaccine (2023-2 5 season) 2023 03/01/2021, 08/27/2020, 07/30/2020 Dental X-Ray: Bitewings 10/14/2024 10/14/19, 05/26/2021 Dental Oral Exam 12/10/2024 06/08/2024, 10/14/2023, 05/26/2021 Dental Prophylaxis 12/10/2024 06/08/2024, 10/14/2023, 08/29/2021 Alcohol/Substance Use Screening 02/05/2025 02/06/2024 Depression Screening 02/05/2025 02/06/2024, 02/06/2024 SDOH Screening 07/01/2025 07/01/2024 Tobacco Screening 07/08/2025 07/08/2024 RSV Patients and Patients Aged 60 years or older (1 - 1-dose 75+ series) 2026 Dental X-Ray: Full Mouth 10/14/2026 024, 02/24/2010 DTaP/Tdap/Td Vaccines (2 - T d or Tdap) 12/26/2027 12/25/2017 Lipid Panel 02/08/2028 02/07/2023, 07/14/2021 Zoster Vaccines Completed 07/04/2018, 05/09/2018 Hepatitis C Screening Completed 11/05/2023 Pneumococcal Vaccine: 50+ Years Completed 11/05/2023, 12/25/2017 Influenza Vaccine Completed 02/06/2024 HIB Vaccines Aged Out No longer eligi ble based on patient's age to complete this topic HPV Vaccines Aged Out No longer eligi ble based on patient's age to complete this topic Hepatitis A Vaccines Aged Out No long er eligible based on patient's age to complete this topic Hepatitis B Vaccines Aged Out No long er eligible based on patient's age to complete this topic IPV Vaccines Aged Out No longer eligi ble based on patient's age to complete this topic Meningococcal Vaccine Aged Out No alexus aby eligible based on patient's age to complete this topic RSV under 20 months Aged Out No longe r eligible based on patient's age to complete this topic Rotavirus Vaccines Aged Out No longer eligible based on patient's age to complete this topic Goals Goal Patient Goal Type Associated Problems Recent Progress Patient-Stated? Author Blood Pressure < 140/90 Blood Pressure 134/78( 025 9:03 AM EDT) No Bigg Small, Francisco Javier Procedures Procedure Name Priority Date/Time Associated Diagnosis Comments CASE PRESENTATION, DETAILED AND EXTENSIVE TREATMENT PLANNING Routine 07/08/2024 8:00 AM EDT Fracture of removable partial denture REPAIR RESIN PARTIAL DENTURE BASE, DONNIE Routine 07/08/2024 8:00 AM EDT Fracture of removable partial denture URIC ACID Routine 07/01/2024 9:32 AM EDT Acute pain of left knee COMPREHENSIVE METABOLIC PANEL Routine 07/01/2024 9:32 AM EDT Acute pain of left knee LIMITED ORAL EVALUATION - PROBLEM FOCUSED Routine 06/30/2024 2:30 PM EDT Fracture of removable partial denture CASE PRESENTATION, DETAILED AND EXTENSIVE TREATMENT PLANNING Routine 06/17/2024 8:00 AM EDT Ulcer of buccal mucosa NO CHARGE VISIT Routine 06/17/2024 8:00 AM EDT Ulcer of buccal mucosa PERIODIC ORAL EVALUATION - ESTABLISHED PATIENT Routine 06/08/2024 8:00 AM EST Dental caries ORAL HYGIENE INSTRUCTIONS Routine 06/08/2024 8:00 AM EST Dental caries CASE PRESENTATION, DETAILED AND EXTENSIVE TREATMENT PLANNING Routine 06/08/2024 8:00 AM EST Dental caries PROPHYLAXIS - ADULT Routine 06/08/2024 8 :00 AM EST Dental caries HEPATITIS C AB W/REFL TO HCV RNA, QN, PCR Routine 11/05/2023 10:44 AM EDT Primary hypertension Primary insomnia Class 1 obesity due to excess calories with serious comorbidity and body mass index (BMI) of 34.0 to 34.9 in adult Hyponatremia INTRAORAL - COMPLETE SERIES OF RADIOGRAPHIC IMAGES Routine 10/14/2023 8:00 AM EDT Dental calculus Dental caries Secondary dental caries associated with failed or defective dental zoroastrian Defective dental zoroastrian LIPID PANEL, STANDARD Routine 02/07/2023 9:42 AM EDT Primary hypertension HM COLONOSCOPY Routine 05/25/2020 3:06 PM EST from Last 3 Months or Most Recently Relevant to Health Maintenance Results * Uric acid (07/01/2024 9:32 AM EDT) Uric Acid 4.0 3.4 - 7.0 mg/dL [facility] Blood Venous blood specimen / Unknown 07/01/2024 9:32 AM EDT 07/01/2024 2:15 PM EDT us Shannan Houston MD LAB BLOOD ORDERABLES Final Result [facility] [address] [place] [address] [phone] * (ABNORMAL) Comprehensive Metabolic Panel (07/01/2024 9:32 AM EDT) Sodium 139 135 - 145 mmol/L [facility] Potassium 4.0 3.3 - 5.1 mmol/L [facility] Chloride 108 96 - 108 mmol/L [facility] Carbon Dioxide 24 22 - 29 mmol/L [facility] Anion Gap 11(L) 12 - 20 [facility] Urea Nitrogen (BUN) 17(H) 9 - 16 mg/dL [facility] Creatinine, Serum 0.70 0.5 - 1.4 mg/dL [facility] Estimated Glomerular Filt Rate >60 [facility] Comment:Chronic Kidney Disea se: Estimated GFR < 60 mL/min/1.76o3Tunurx Kidney Disease: Estimated GFR < 15 mL/min/1.73m2 Glucose 78 60 - 115 mg/dL [facility] Calcium 9.4 8.4 - 10.2 mg/dL [facility] Bilirubin, Total 0.5 0.0 - 1.0 mg/dL [facility] Aspartate Amino Transferase 25 5 - 37 U/L [facility] Alanine Aminotransferase 18 0 - 40 U/L [facility] Total Protein 7.5 6.5 - 8.0 g/dL [facility] Albumin Level 4.5 3.5 - 5.0 g/dL [facility] Alkaline Phosphatase 98 39 - 117 U/L [facility] Blood Venous blood specimen / Unknown 07/01/2024 9:32 AM EDT 07/01/2024 2:15 PM EDT us Shannan Houston MD LAB BLOOD ORDERABLES Final Result Performing Organization Address City/[facility] Co de Phone Number [facility] [address] [place] [address] [phone] * Hepatitis C Antibody with Reflex to HCV, RNA, Quantitative, Real-Time PCR (11/05/2023 10:44 AM EDT) Hepatitis C Antibody Nonreactive Nonreactive [facility] Comment:Antibodies to HCV no t detected; does not exclude early acuteHCV infection. Blood Venous blood specimen / Unknown 11/05/2023 10:44 AM EDT 11/05/2023 4:15 PM EDT us Shannan Houston MD LAB BLOOD ORDERABLES Final Result Performing Organization Address [facility] Co de Phone Number [facility] [address] [place] [phone] * (ABNORMAL) Lipid Panel, Standard (02/07/2023 9:42 AM EDT) Triglycerides 184(H) <150 mg/dL [facility] Comment:Desirable Triglyceri de: less than 150 mg/dLBorderline High Triglyceride 150-199 mg/dLHigh Triglyceride: 200-499 mg/dLVery High Triglyceride: greater than or equal to 5OO mg/dL Cholesterol 165 <200 mg/dL [facility] Comment:Desirable Cholestero l: less than 200 mg/dLBorderline High Cholesterol: 200-239 mg/dLHigh Cholesterol: greater than 239 mg/dL LDL Cholesterol Calculated 82 <100 mg/dL [facility] Comment:Desirable LDL: less than 100 mg/dLNear Optimal/Above Optimal LDL: 110- 129 mg/dLBorderline High LDL: 130-159 mg/dLHigh LDL: 160-189 mg/dLVery High LDL: greater than or equal to 190 mg/dL HDL Cholesterol 47 >40 mg/dL [facility] Comment:Desirable HDL: great er than 40 mg/dL Note: This HDL assay may give artificially low results in patients with liver disease. Blood Venous blood specimen / Unknown 02/07/2023 9:42 AM EDT 02/07/2023 2:05 PM EDT us Shannan Houston MD LAB BLOOD ORDERABLES Final Result [facility] [address] [place] [address] [phone] * Colonoscopy (05/25/2020 3:06 PM EST) us Historical Provider HEALTH MAINTENANCE Final Result from Last 3 Months or Most Recently Relevant to Health Maintenance Insurance [facility] [employer] [employer] HMO HS FULL DENTAL - HSN FULL (MEDICAID) Care Teams Meat Apprentice Relationship Specialty Start Date End Date Shannan Houston MD [address] [place] [address] PCP - General Internal Medicine 09/27/16
--- OUTSIDE RECORDS SUMMARY | 2024-07-20 07:55 | XMS_ITS | Encounter Summary ---
Author Organization [employer] [facility] Address [address] [place] [address] [place] [address] Care Team Providers Care Car Servicer Name Role Phone Shannan Houston MD Primary Care Provider Encounter Details Date Type Department Care Team (Late Contact Info) Description 06/07/2022 Orders Only [facility] [address] [place], [place] [phone] Shannan Houston MD [address] [place], [place] [phone] Primary hypertension (Primary Dx) Social History Tobacco Use Types [...] Description 07/29/2024 8:00 AM EDT Office Visit [facility] ADULT D[facility] [address] [place], [place] [phone] Giovani Lin DMD [address] [place], [place] [phone] documented as of this encounter Procedures Procedure Name Priority Date/Time Associated Diagnosis Comments COMPREHENSIVE METABOLIC PANEL, FASTING Routine 02/07/2023 9:42 AM EDT Primary hypertension documented in this encounter Results * (ABNORMAL) Comprehensive Metabolic Panel, Fasting (02/07/2023 9:42 AM EDT) Sodium 142 135 - 145 mmol/L [facility] Potassium 3.8 3.3 - 5.1 mmol/L [facility] Chloride 111(H) 96 - 108 mmol/L [facility] Carbon Dioxide 22 22 - 29 mmol/L [facility] Anion Gap 13 12 - 20 [facility] Urea Nitrogen (BUN) 19(H) 9 - 16 mg/dL [facility] Creatinine, Serum 0.76 0.5 - 1.4 mg/dL [facility] Estimated Glomerular Filt Rate >60 [facility] Comment:NOTE: For -Am erican individuals, multiply the result by 1.210.Chronic Kidney Disease: Estimated GFR < 60 mL/min/1.66q0Xrhnvg Kidney Disease: Estimated GFR < 15 mL/min/1.73m2 Glucose Fasting 76 60 - 99 mg/dL [facility] Calcium 9.1 8.4 - 10.2 mg/dL [facility] Bilirubin, Total 0.5 0.0 - 1.0 mg/dL [facility] Aspartate Amino Transferase 26 5 - 37 U/L [facility] Alanine Aminotransferase 33 0 - 40 U/L [facility] Total Protein 7.2 6.5 - 8.0 g/dL [facility] Albumin Level 4.6 3.5 - 5.0 g/dL [facility] Alkaline Phosphatase 75 39 - 117 U/L [facility] 02/07/2023 9:42 AM EDT 02/07/2023 2:05 PM EDT us Shannan Houston MD LAB BLOOD ORDERABLES Final Result [facility] [address] [place] [address] [phone] documented in this encounter Visit Diagnoses Diagnosis Primary hypertension- Primary Unspecified essential hypertension documented in this encounter Additional Health Concerns Assessment Noted Time PHQ-9 Depression Total Score: 4 03/26/20 22 9:28 AM EST documented as of this encounter Care Teams Car Servicer Relationship Specialty Start Date End Date Shannan Houston MD [address] [place] [address] PCP - General Internal Medicine 09/27/16 documented as of this encounter
--- NOTE | 2024-07-20 08:11 | MHC.OFFVIS ---
Intake Visit Reasons: 5 month follow up Intake Note: Axel presents as a telehealth today for a 5 month follow up. CC: States that this is just a routine visit and requesting a phone call. Allergies bee pollen [BEE STINGS] Allergy (Severe, Verified 07/20/24 08:12) ANAPHYLAXIS HPI HPI 5 month follow up: Details: 73 yr old m w hx of high chol, HTN called for f/u for barretts RECAP: He had microcytic anemia, HGB 11, MCV 79, Fe sat 5% and ferritin 14 from 09/2018 he is on aspirin he said he has had anemia for few years never seen blood in stool or melena had colonoscopy 5 yrs ago and had few polyps removed--told repeat due in 3 yrs never had upper GI scope not on nsaid or other blood thiner TESTS: EGD/colonoscopy--10/06/18-- erosive gastritis, shefali erosions, large hiatal hernia, barretts esophagus, tubular adenoma EGD 10/2019--barretts. wats and bx indefinite for dysplasia, posisble favor colonoscopy--incomplete, poor prep, diverticulosis EGD/colonoscopy-- 05/2020-- polyp from cecum, barretts, [id number], no dysplasia on WATS or biopsy ([place] protocol) EGD: 12/2020--7 cm hiatal hernia. Long segment of salmon pink mucosa noted [id number]--rtyn of LGD, and multiple areas of indefinite dysplasia both on path and WATS3D EGD 11/2021- WATS 3D with adequate cellularity, neg for dysplasia, reactive changes, path with no dysplasia and on area with indefinite dysplasia at 26 cm EGD 03/01- Long segment Barretts, no dysplasia on path BUT WATS with LGD at 26-30 cm, other areas were neg for dysplasia, also pos for H pylori INTERIM: He is taking PPI BID as recommended he feels well no n/v weight stable. appetite is good no abdo pain Assessments 1. Springer's esophagus with LGD on WATS, tissue cypher low risk 2. H pylori pos 1/Re-advised RFA would be recommended next step, other option would be hybrid APC, vs EGd for surveillance, he is undecided also he believes his inusrance does not cover referrals to [facility] or [facility] --and he is also worried about transport to these places Will check regarding insurance, if indeed not covered and ongoing issues with transport then we can do hybrid APC, warned would be multiple treatments, at least 3, prob do 3-4 cm at a time he will get back to me on what he wants to do PFSH Medical History Hiatal hernia Barretts esophagus Anemia Depression Elevated cholesterol HTN (hypertension) Surgical History History of esophagogastroduodenoscopy (EGD) H/O colonoscopy Family History Father No problems noted. Mother Breast cancer Brother Prostate cancer Social History Household Members: None Are you a primary critical care clinical nurse specialist to a significant other at home: No Do you presently have visiting nurse or other home services: No Alcohol intake: current Alcohol intake frequency: does not drink Patient Tobacco Use Status: Former Tobacco user Tobacco use type: Cigarette service: No Current occupational status: retired Telehealth Telehealth Telehealth Platform: Telephone Location of provider rendering services: practice address Location of patient: address on file Patient Identification confirmed using: Name, : Yes Telehealth method: voice only Patient verbally consented to treatment: Yes Patient verbally consented to billing insurance company: Yes Patient informed of any privacy concerns related to visit: Yes Minutes spent on Phone/Video with Pt.: 7 Assessment & Plan Assessment & Plan (1) Springer's esophagus: Code(s): K22.70 - Springer's esophagus without dysplasia Category: Medical Plan: as above Coding Level of Care Code Tele Est Pt Level 3 (32136) Diagnoses Springer's esophagus K22.70
== END 2024-07-20 18:42 | disposition home or self-care (01) ==
LOC: HO.HGI 07:52
PROVIDERS: PCP Internal Medicine; Visit Provider Internal Medicine Gastroenterology
DX: K22.70 Barrett's esophagus without dysplasia (principal)
CPT/HCPCS: 99213

== ENCOUNTER → 2024-07-20 07:52 | Outpatient (BNVA) | payer MEDICARE, SELFPAY | PROVIDERS: PCP Internal Medicine; Visit Provider Internal Medicine Gastroenterology | DX: Z13.89 Encounter for screening for other disorder (principal) ==

== ENCOUNTER 2024-09-16 07:29 | Day surgery (SDC) | payer MEDICARE, SELFPAY ==
--- OUTSIDE RECORDS SUMMARY | 2024-08-24 13:34 | XMS_ITS | Encounter Summary ---
Author Organization [employer] Address [address] [place] [address] Care Team Providers Care Child Life Specialist Name Role Phone Shannan Houston MD Primary Care Provider [phone] Encounter Details Date Type Department Care Team ([facility] st Contact Info) Description 02/21/2023 Orders Only [facility] [address] [place], [place] [phone] Shanann Houston MD [address] [place], [place] [phone] Screening for prostate cancer (Primary Dx) Social [...] was adequate last time we checked in August 29, I will refer to Hematology for further assessment and treatment. * Result Encounter Note - Shannan Houston MD - 02/21/2023 8:59 PM EST The testosterone level is pending. documented in this encounter Plan of Treatment Not on file documented as of this encounter Goals Goal Patient Goal Type Associated Problems Recent Progress Patient-Stated? Author Blood Pressure < 140/90 Blood Pressure 114/82( 025 8:09 AM EDT) No Bigg Small, PharmD documented [...] * T4, Free (02/06/2024 11:01 AM EDT) Free T4 (Free Thyroxine) 0.92 0.71 - 1.85 ng/dL [facility] 02/06/2024 11:0 1 AM EDT 02/06/2024 11:01 AM EDT us Shannan Houston MD LAB BLOOD ORDERABLES Final Result Performing Organization Address [facility] Co de Phone Number [facility] [address] [place] [address] [phone] * PSA, Screen (11/05/2023 10:44 AM EDT) Pathologist [facility] PSA, Total 0.89 <0.05 - 4.0 ng/mL [facility] Comment:PSA methodology: Stoney Aguilera i ChemiluminescentMicroparticle Immunoassay (CMIA) Blood Venous blood specimen / Unknown 11/05/2023 10:44 AM EDT 11/05/2023 4:15 PM EDT us Shannan Houston MD LAB BLOOD ORDERABLES Final Result Performing Organization Address [facility] Co de Phone Number [facility] [address] [place] [address] [phone] * (ABNORMAL) Vitamin B12/Folate, Serum Panel (08/09/2023 12:20 PM EDT) Pathologist [facility] Vitamin B12 >2,000(H ) 200 - 900 pg/mL [facility] Comment:NORMAL 200-900 PG/ML INDETERMINATE 160-199 PG/ML DEFICIENT < 160 PG/ML Folate 6.6 > or = 4.0 ng/mL [facility] Comment:Reference Values:> o r = 4.0 ng/mL< 4.0 ng/mL suggests folate deficiency Methotrexate, aminopterin and folinic acid(leucovorin) are chemotherapeutic agents whose molecularstructures are similar to folate; therefore, the Architectfolate assay cannot be used for patients using these drugs. 08/09/2023 12:2 0 PM EDT 08/09/2023 12:20 PM EDT us [employer] External Data Provider LAB BLOOD ORDERAB LES Final Result Performing Organization Address [facility] Co de Phone Number [facility] [address] [place] [address] [phone] * Ferritin (08/09/2023 12:20 PM EDT) Ferritin 228 20 - 250 ng/mL [facility] 08/09/2023 12:2 0 PM EDT 08/09/2023 12:20 PM EDT us Generic External Data Provider LAB BLOOD ORDERAB LES Final Result [facility] [address] [place] [phone] * (ABNORMAL) Comprehensive Metabolic Panel (08/09/2023 12:20 PM EDT) Sodium 134(L) 135 - 145 mmol/L [facility] Potassium 4.3 3.3 - 5.1 mmol/L [facility] Chloride 104 96 - 108 mmol/L [facility] Carbon Dioxide 21(L) 22 - 29 mmol/L [facility] Anion Gap 13 12 - 20 [facility] Urea Nitrogen (BUN) 20(H) 9 - 16 mg/dL [facility] Creatinine, Serum 0.95 0.5 - 1.4 mg/dL [facility] Estimated Glomerular Filt Rate >60 [facility] Comment:NOTE: For -Am erican individuals, multiply the result by 1.210.Chronic Kidney Disease: Estimated GFR < 60 mL/min/[id number] Kidney Disease: Estimated GFR < 15 mL/min/1.73m2 Glucose 90 60 - 115 mg/dL [facility] Calcium 9.2 8.4 - 10.2 mg/dL [facility] Bilirubin, Total 0.5 0.0 - 1.0 mg/dL [facility] Aspartate Amino Transferase 16 5 - 37 U/L [facility] Alanine Aminotransferase 15 0 - 40 U/L [facility] Total Protein 7.4 6.5 - 8.0 g/dL [facility] Albumin Level 4.6 3.5 - 5.0 g/dL [facility] Alkaline Phosphatase 86 39 - 117 U/L [facility] 08/09/2023 12:2 0 PM EDT 08/09/2023 12:20 PM EDT us Generic External Data Provider LAB BLOOD ORDERAB LES Final Result [facility] [address], [place] [phone] * (ABNORMAL) CBC auto differential (08/09/2023 12:20 PM EDT) White Blood Count 7.5 4.8 - 10.8 X10*3/uL [facility] Red Blood Count 4.38(L) 4.60 - 5.80 X10*6/uL [facility] Hemoglobin 13.7(L) 14.0 - 18.0 g/dl [facility] Hematocrit 39.2(L) 42.0 - 52.0 % [facility] Mean Corpuscular Volume 89.5 80.0 - 98.0 fL [facility] Mean Corpuscular Hemoglobin 31.3 27.0 - 33.0 pg [facility] Mean Corpuscular HGB Conc 34.9 31.0 - 36.0 g/dl [facility] Red Cell Distribution Width 13.4 11.0 - 16.0 % [facility] Platelet Count 256 160 - 400 X10*3/uL [facility] Mean Platelet Volume 10.8 9.4 - 12.4 fL [facility] Neutrophils Percent Auto 60.1 45 - 73 % [facility] Imm Gran Pct Auto 0.4 0.0 - 0.4 % [facility] Lymphocytes Percent Auto 24.3 20 - 40 % [facility] Monocytes Percent Auto 9.7 2 - 11 % [facility] Eosinophils Percent Auto 4.0 0 - 4 % [facility] Basophils Percent Auto 1.5 0 - 2 % [facility] NRBC Pct Auto 0.0 0.0 - 0.2 /100WBC [facility] Neutrophils Absolute Auto 4.5 2.0 - 8.3 x10*3/uL [facility] Imm Gran Abs Auto 0.03 0.00 - 0.03 X10*3/uL [facility] Lymphocytes Absolute Auto 1.8 1.2 - 4.9 X10*3/uL [facility] Monocytes Absolute Auto 0.7 0.1 - 1.2 X10*3/uL [facility] Eosinophils Absolute Auto 0.3 0.0 - 0.4 X10*3/uL [facility] Basophils Absolute Auto 0.1 0.0 - 0.2 X10*3/uL [facility] NRBC Abs Auto 0.000 0.0 - 0.012 X10*3/uL [facility] 08/09/2023 12:2 0 PM EDT 08/09/2023 12:20 PM EDT us Generic External Data Provider LAB BLOOD ORDERAB LES Final Result [facility] [address] [place] [phone] documented in this encounter Visit Diagnoses Diagnosis Screening for prostate cancer- Primary Special screening for malignant neoplasm of prostate documented in this encounter Additional Health Concerns Assessment Noted Time PHQ-9 Depression Total Score: 4 03/26/20 22 9:28 AM EST documented as of this encounter Care Teams Child Life Specialist Relationship Specialty Start Date End Date Shannan Houston MD [address] [place] [phone] PCP - General Internal Medicine 09/27/16 documented as of this encounter
--- OUTSIDE RECORDS SUMMARY | 2024-08-24 13:34 | XMS_ITS | Encounter Summary ---
Author Organization [employer] Address [address] [place] [address] Care Team Providers Care Learning And Development Coordinator Name Role Phone Shannan Houston MD Primary Care Provider Reason for Visit * Reason Onset Date Comments Results 02/06/2024 Encounter Details Date Type Department Care Team ([facility] st Contact Info) Description 02/06/2024 Telephone [facility] [address] [place] [address] Shannan Houston MD [address] [place] [address] Results Social History Tobacco Use Types Packs/Day [...] AM EDT documented as of this encounter Functional Status * Over the past 2 weeks, how often have you been bothered by any of the following problems? Question Answer Date of Assessment Author Patient Health Questionnaire-2 Score 0 01/08 9:22 AM EDT Lavell Fernandez MA * Over the past 2 weeks, how often have you been bothered by any of the following problems? Question Answer Date of Assessment Author Little interest or pleasure in doing things Not at all 02/06/2024 9:22 AM EDT Lavell Fernandez M A Feeling down, depressed, or hopeless Not at all 02/06/2024 9:22 AM EDT Lavell Fernandez M A Trouble falling or staying asleep, or sleeping too much Not at all 02/06/2024 9:22 AM EDT Lavell Fernandez MA Feeling tired or having tavares le energy Not at all 02/06/2024 9:22 AM EDT Lavell Fernandez M A Poor appetite or overeating Not at all 02/06/2024 9: 22 AM EDT aLvell Fernandez MA Feeling bad about yourself - or that you are a failure or have let yourself or your family down Not at all 02/06/2024 9:22 AM EDT Lavell Vides MA Trouble concentrating on thi ngs, such as reading the newspaper or watching television Not at all 02/06/2024 9:22 AM EDT Lavell Fernandez M A Moving or speaking so slowly that other people could have noticed? Or the opposite - being so fidgety or restless that you have been moving around a lot more than usual. Not at all 02/06/2024 9:22 AM Lavell Coleman M A Thoughts that you would be better off or hurting yourself in some way Not at all 02/06/2024 9:22 AM EDT Lavell Fernandez MA Patient Health Questionnaire -9 Score 0 02/06/2024 9:22 AM EDT Lavell Fernandez M A documented as of this encounter Miscellaneous Notes * Telephone Encounter - Shannan Houston MD - 02/06/2024 8:20 PM EDT Please to previous message * Telephone Encounter - Pako Aguilera - 02/06/2024 3:11 PM EDT TC from pt requesting call back regarding Results. Type of results: Labs Date when done: 02/06/24 [place] [facility] documented in this encounter Plan of Treatment Not on file documented as of this encounter Goals Goal Patient Goal Type Associated Problems Recent Progress Patient-Stated? Author Blood Pressure < 140/90 Blood Pressure 114/82( 025 8:09 AM EDT) No Dellogono, Bigg, PharmD documented as of this encounter Visit Diagnoses Not on filedocumented in this encounter Additional Health Concerns Assessment Noted Time PHQ-9 Depression Total Score: 0 02/06/20 24 9:22 AM EDT documented as of this encounter Care Teams Learning And Development Coordinator Relationship Specialty Start Date End Date Shannan Houston MD [address] [place] [phone] PCP - General Internal Medicine 09/27/16 documented as of this encounter
--- OUTSIDE RECORDS SUMMARY | 2024-08-24 13:34 | XMS_ITS | Encounter Summary ---
Author Organization [employer] Address [address] [place] [address] Care Team Providers Care Director Of Materials Name Role Phone Shannan Houston MD Primary Care Provider [phone] Encounter Details Date Type Department Care Team (Late st Contact Info) Description 01/31/2023 Abstract [facility] [address] [place] [address] Shannan Houston MD [address] [place], [place] [phone] Social History Tobacco Use Types Packs/Day Years [...] as of this encounter Plan of Treatment Not on [...] documented as of this encounter Care Teams Director Of Materials Relationship Specialty Start Date End Date Shannan Houston MD [address] [place] [phone] PCP - General Internal Medicine 09/27/16 documented as of this encounter
--- OUTSIDE RECORDS SUMMARY | 2024-08-24 13:34 | XMS_ITS | Clinical Summary ---
Author Organization [employer] Address [address] [facility] [address] [place] [address] Care Team Providers Care Shipping Helper Name Role Phone Shannan [place] MD Primary [...] 1 dose. 0.3 mL 09/01/19 23 Active Sod Fluoride-Potass ium Nitrate 1.1-5 % pasteIndication s:Dental caries [place] teeth for 2 minutes, morning and night. Spit, do not rinse. Do not eat or drink anything for 30 minutes following brushing. 112 g 3 10/14/19 24 Active lisinopril 40 MG tabletIndicatio ns:Essential (primary) hypertension TAKE ONE TABLET EVERY MORNING 90 tablet 3 11/26/19 24 Active Sodium Fluoride 5000 Sensitive 1.1-5 % gel [place] teeth for 2 minutes, morning and night. [...] (Flagyl) 500 MG tablet 02/27/20 24 Active ferrous sulfate (FeroSul) 325 (65 Fe) [...] 50 g 1 07/02/19 25 2025 Active amitriptyline (Elavil) 100 MG tablet TAKE ONE TABLET EVERY NIGHT AT BEDTIME 30 tablet 5 07/24/19 25 Active celecoxib (CeleBREX) 200 MG capsuleIndicati ons:Chronic pain syndrome TAKE ONE CAPSULE TWICE DAILY IN THE MORNING AND AT BEDTIME 60 capsule 3 08/18/19 25 Active celecoxib (CeleBREX) 200 MG capsuleIndicati ons:Chronic pain syndrome TAKE ONE CAPSULE TWICE DAILY IN THE MORNING AND AT BEDTIME 60 capsule 3 04/28/19 25 2024 Discontinued Active Problems Problem Noted Date Diagnosed Date [...] Encounters Date Type Department Care Team Description 08/16/[address] [facility] [address] [place] [address] Shannan [place] MD Chronic pain syndrome 07/29/2024 8:00 AM EDT Office Visit [facility] [address] [place] [address] Giovani Lin DMD Defective dental latter day (Primary Dx); Dental caries 07/22/[address] [facility] [address] [place] [address] Shannan [place] MD 07/08/2024 8:00 AM EDT Office Visit [facility] [address] [place] [address] Giovani Lin DMD Fracture of removable partial denture (Primary Dx) 07/01/2024 9:00 AM EDT Office Visit [facility] [address] [place] [address] Shannan [place] MD Springer's esophagus with dysplasia (Primary Dx); Primary hypertension; Normochromic normocytic anemia; Acute pain of left knee 07/01/2024 Travel 06/30/2024 2:30 PM EDT Office Visit [facility] [address] [place] [address] Giovani Lin DMD Fracture of removable partial denture (Primary Dx) 06/26/[address] [facility] [address] [place] [address] Shannan [place] MD 06/24/2024 Patient Outreach [facility] [address] [place] [address] Shannan [place] MD Pre-visit Planning ([facility] unable to reach [facility]) 06/17/2024 8:00 AM EDT Office Visit [facility] [address] [place] [address] Riley GiovaniAKBAR Ulcer of buccal mucosa (Primary Dx) 06/08/2024 8:00 AM EST Office Visit [facility] [address] [place] [address] Evy Harrison Dental caries (Primary Dx) 05/30/[address] 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 from Last 3 Months Immunizations Immunization Administration Dates Next Due Influenza, High Dose [...] Sign Reading Time Taken Comments Blood Pressure 114/82 07/29/2024 8:09 AM EDT Pulse 64 07/29/2024 8:09 AM EDT Temperature 36.7 ??C (98 ??F) 07/01/2024 9:03 AM EDT Respiratory Rate 20 07/01/2024 9:03 AM EDT Oxygen Saturation 98% 07/01/2024 9:03 AM EDT Inhaled Oxygen Concentration - - Weight 98 kg (216 lb) 07/01/2024 9:03 AM EDT Height 169 cm (5' 6.54 ) 07/01/2024 9:03 AM EDT Body Mass Index 34.3 07/01/2024 9:03 AM EDT Plan of Treatment Health Maintenance Due Date Last Done Comments [...] 02/06/2024 SDOH Screening 07/01/2025 07/01/2024 Tobacco Screening 07/29/2025 07/29/2024 RSV Patients and Patients Aged 60 years [...] patient's age to complete this topic Meningococcal B Vaccine Aged Out No l onger eligible based on patient's age to complete [...] Pressure 114/82( 025 8:09 AM EDT) No Geovanny, Bigg, PharmDarrick Procedures Procedure Name Priority Date/Time Associated Diagnosis Comments CASE PRESENTATION, DETAILED AND EXTENSIVE TREATMENT PLANNING Routine 07/29/2024 8:00 AM EDT Defective dental latter day Dental caries 17 EXTRACTION, ERUPTED TOOTH OR EXPOSED ROOT (ELEVATION/FORCEPS REMOVAL) Routine 07/29/2024 8:00 AM EDT Defective dental latter day Dental caries 16 EXTRACTION, ERUPTED TOOTH OR EXPOSED ROOT (ELEVATION/FORCEPS REMOVAL) Routine 07/29/2024 8:00 AM EDT Defective dental latter day Dental caries CASE PRESENTATION, DETAILED AND EXTENSIVE [...] caries associated with failed or defective dental latter day Defective dental latter day LIPID PANEL, STANDARD Routine 02/07/2023 9:42 AM EDT Primary hypertension HM COLONOSCOPY Routine 05/25/2020 3:06 PM EST from Last 3 Months or Most Recently Relevant to Health Maintenance Results * Uric acid (07/01/2024 9:32 AM EDT) Uric Acid 4.0 3.4 - 7.0 mg/dL [facility] Blood Venous blood specimen / Unknown 07/01/2024 9:32 AM EDT 07/01/2024 2:15 PM EDT us Shannan [place] MD LAB BLOOD ORDERABLES Final Result [facility] [address] [place] [phone] * (ABNORMAL) Comprehensive Metabolic Panel (07/01/2024 9:32 AM EDT) Sodium 139 135 - 145 mmol/L [facility] Potassium 4.0 3.3 - 5.1 mmol/L [facility] Chloride 108 96 - 108 mmol/L [facility] Carbon Dioxide 24 22 - 29 mmol/L [facility] Anion Gap 11(L) 12 - [address] [facility] Urea Nitrogen (BUN) 17(H) 9 - 16 mg/dL [facility] Creatinine, Serum 0.70 0.5 - 1.4 mg/dL [facility] Estimated Glomerular Filt Rate >[address] [facility] Comment:Chronic Kidney Disea se: Estimated GFR < 60 mL/min/1.14d3Mmljmt Kidney Disease: Estimated GFR < 15 mL/min/1.73m2 Glucose 78 60 - 115 mg/dL [facility] Calcium 9.4 8.4 - 10.2 mg/dL [facility] Bilirubin, Total 0.5 0.0 - 1.0 mg/dL [facility] Aspartate Amino Transferase 25 5 - 37 U/L [facility] Alanine Aminotransferase 18 0 - 40 U/L [facility] Total Protein 7.5 6.5 - 8.0 g/dL [facility] Albumin Level 4.5 3.5 - 5.0 g/dL [facility] Alkaline Phosphatase 98 39 - 117 U/L [facility] Blood Venous blood specimen / Unknown 07/01/2024 9:32 AM EDT 07/01/2024 2:15 PM EDT us Shannan [place] MD LAB BLOOD ORDERABLES Final Result Performing Organization Address [facility]/ZIP Co de Phone Number [facility] [address] [place] [phone] * Hepatitis C Antibody with Reflex to HCV, RNA, Quantitative, Real-Time PCR (11/05/2023 10:44 AM EDT) Hepatitis C Antibody Nonreactive Nonreactive [facility] Comment:Antibodies to HCV no t detected; does not exclude early acuteHCV infection. Blood Venous blood specimen / Unknown 11/05/2023 10:44 AM EDT 11/05/2023 4:15 PM EDT us Shannan [place] MD LAB BLOOD ORDERABLES Final Result Performing Organization Address [facility] Co de Phone Number [facility] [address] [place] [phone] * (ABNORMAL) Lipid Panel, Standard (02/07/2023 9:42 AM EDT) Triglycerides 184(H) <150 mg/dL [facility] Comment:Desirable Triglyceri de: less than 150 mg/dLBorderline High Triglyceride 150-199 mg/dLHigh Triglyceride: 200-499 mg/dLVery High Triglyceride: greater than or equal to 5OO mg/dL Cholesterol 165 <200 mg/dL [facility] Comment:Desirable Cholestero l: less than 200 mg/dLBorderline High Cholesterol: 200-239 mg/dLHigh Cholesterol: greater than 239 mg/dL LDL Cholesterol Calculated 82 <100 mg/dL [facility] Comment:Desirable LDL: less than 100 mg/dLNear Optimal/Above Optimal LDL: 110- 129 mg/dLBorderline High LDL: 130-159 mg/dLHigh LDL: 160-189 mg/dLVery High LDL: greater than or equal to 190 mg/dL HDL Cholesterol 47 >40 mg/dL [facility] Comment:Desirable HDL: great er than 40 mg/dL Note: This HDL assay may give artificially low results in patients with liver disease. Blood Venous blood specimen / Unknown 02/07/2023 9:42 AM EDT 02/07/2023 2:05 PM EDT us Shannan [place] MD LAB BLOOD ORDERABLES Final Result [facility] [address] [place] [phone] * Hm Colonoscopy (05/25/2020 3:06 PM EST) Historical Provider HEALTH MAINTENANCE Final Result from Last 3 Months or Most Recently Relevant to Health Maintenance Insurance [facility] MEDICARE ADVANTAGE HMO HS FULL DENTAL - HSN FULL (MEDICAID) Care Teams Shipping Helper Relationship Specialty Start Date End Date Shannan [place] MD [address] [place] [phone] PCP - General Internal Medicine 09/27/16
--- OUTSIDE RECORDS SUMMARY | 2024-08-24 13:34 | XMS_ITS | Encounter Summary ---
Author Organization [employer] Address 75 [facility] 7 [place] [address] Care Team Providers Care Pocket Cutter Name Role Phone Shannan [place] MD Primary Care Provider [phone] Reason for Referral * Consultation (Routine) - Closed Specialty Diagnoses / Procedures Referred By Contac t Referred To Contact Hematology and Oncology Diagnoses Other fatigue Microcytic anemia Shannan [place] MD [address] [place] [address] Phone: tel: fax: Dee Butcher MD [address] [place] [phone] Phone: tel: Referral ID Status Reason Start Date Expiration Date V isits Requested Visits Authorized [id number] Closed Specialty Services Required 02/06/2024 02/05/2025 1 1 Encounter Details Date Type Department Care Team ([facility] st Contact Info) Description 02/06/2024 Orders Only [facility] [address] [place], [place] [phone] Shannan [place] MD [address] [place], [place] [phone] Other fatigue (Primary Dx); Microcytic anemia Social [...] 9:22 AM EDT Lavell Fernandez MA Feeling down, depressed, or hopeless Not at all 02/06/2024 9:22 AM GRECIAT Lavell Fernandez M A Trouble falling or staying asleep, or sleeping too much Not at all 02/06/2024 9:22 AM GRECIAT Lavell Fernandez MA Feeling tired or having tavares le energy Not at all 02/06/2024 9:22 AM Lavell Coleman M A Poor appetite or overeating Not at all 02/06/2024 9: 22 AM EDT Lavell Fernandez MA Feeling bad about yourself - or that you are a failure or have let yourself or your family down Not at all 02/06/2024 9:22 AM Lavell Coleman M A Trouble concentrating on things, such as reading the newspaper or watching television Not at all 02/06/2024 9:22 AM Lavell Coleman M A Moving or speaking so slowly that other people could have noticed? Or the opposite - being so fidgety or restless that you have been moving around a lot more than usual. Not at all 02/06/2024 9:22 AM EDT Lavell Fernandez MA Thoughts that you would be better off or hurting yourself in some way Not at all 02/06/2024 9:22 AM EDT Lavell Fernandez MA Patient Health Questionnaire -9 Score 0 02/06/2024 9:22 AM EDT Lavell Fernandez M A documented as of this encounter Plan of Treatment Scheduled Referrals Name Type Priority Associated Diagnoses Order Schedule Referral to Hematology / Oncology Outpatient Referral Routine Other fatigue Microcytic anemia Expected: 02/06/2024 (Approximate), Expires: 02/05/2025 documented as of this encounter Goals Goal Patient Goal Type Associated Problems Recent Progress Patient-Stated? Author Blood Pressure < 140/90 Blood Pressure 114/82( 025 8:09 AM EDT) No iBgg Small, PharmD documented as of this encounter [...] documented as of this encounter Care Teams Pocket Cutter Relationship Specialty Start Date End Date Shannan [place] MD [address] [place] [address] [place] [phone] PCP - General Internal Medicine 09/27/16 documented as of this encounter
--- OUTSIDE RECORDS SUMMARY | 2024-08-24 13:34 | XMS_ITS | Encounter Summary ---
Author Organization [employer] Address [address] [facility] 7t [place] [address] Care Team Providers Care Doggy Daycare Activities Director Name Role Phone Shannan [place] MD Primary Care Provider [phone] Encounter Details Date Type Department Care Team (Late st Contact Info) Description 06/07/2022 Orders Only [facility] [address] [place], [place] [phone] Shannan [place] MD [address] [place], [place] [phone] Primary hypertension (Primary Dx) Social History Tobacco [...] on file documented as of this encounter Procedures Procedure Name Priority Date/Time Associated Diagnosis Comments COMPREHENSIVE METABOLIC PANEL, FASTING Routine 02/07/2023 9:42 AM EDT Primary hypertension documented in this encounter Results * (ABNORMAL) Comprehensive Metabolic Panel, Fasting (02/07/2023 9:42 AM EDT) Sodium 142 135 - 145 mmol/L [facility] Potassium 3.8 3.3 - 5.1 mmol/L [facility] Chloride 111(H) 96 - 108 mmol/L [facility] Carbon Dioxide 22 22 - 29 mmol/L [facility] Anion Gap 13 12 - 20 [facility] Urea Nitrogen (BUN) 19(H) 9 - 16 mg/dL [facility] Creatinine, Serum 0.76 0.5 - 1.4 mg/dL [facility] Estimated Glomerular Filt Rate >60 [facility] Comment:NOTE: For -Am erican individuals, multiply the result by 1.210.Chronic Kidney Disease: Estimated GFR < 60 mL/min/1.56w2Hnqsqr Kidney Disease: Estimated GFR < 15 mL/min/1.73m2 Glucose Fasting 76 60 - 99 mg/dL [facility] Calcium 9.1 8.4 - 10.2 mg/dL [facility] Bilirubin, Total 0.5 0.0 - 1.0 mg/dL [facility] Aspartate Amino Transferase 26 5 - 37 U/L [facility] Alanine Aminotransferase 33 0 - 40 U/L [facility] Total Protein 7.2 6.5 - 8.0 g/dL [facility] Albumin Level 4.6 3.5 - 5.0 g/dL [facility] Alkaline Phosphatase 75 39 - 117 U/L [facility] 02/07/2023 9:42 AM EDT 02/07/2023 2:05 PM EDT Shannan [place] MD LAB BLOOD ORDERABLES Final Result [facility] [address] [place] [phone] documented in this encounter Visit Diagnoses Diagnosis Primary hypertension- Primary Unspecified essential hypertension documented in this encounter Additional Health Concerns Assessment Noted Time PHQ-9 Depression Total Score: 4 03/26/20 22 9:28 AM EST documented as of this encounter Care Teams Doggy Daycare Activities Director Relationship Specialty Start Date End Date Shannan [place] MD [address] [place] [phone] PCP - General Internal Medicine 09/27/16 documented as of this encounter
--- NOTE | 2024-09-15 11:49 | HO.ANESPROP2 ---
Documented by User: Jaja Raines NP 09/15/24 11:49 HPI - Anesthesia Eval Consult details Narrative: 74yo M for Upper Endo with APC PMFSH Active Problems Active Problems: All Active Problems Normocytic normochromic anemia (Acute) Fatigue (Acute) Iron deficiency (Acute) Colonic polyp (Acute) Springer's esophagus (Acute) Depression (Acute) Past Medical History Medical History Hiatal hernia Barretts esophagus Anemia Depression Elevated cholesterol HTN (hypertension) Family History Family History Father No problems noted. Mother Breast cancer Brother Prostate cancer Family history of problems with anesthesia: No Surgical History Surgical History History of esophagogastroduodenoscopy (EGD) H/O colonoscopy History of Problems with Anesthesia: No Social History Social History Household Members: None Household Members Other:: lives alone Are you a primary caretaker grounds to a significant other at home: No Do you presently have visiting nurse or other home services: No Alcohol intake: current Alcohol intake frequency: does not drink Patient Tobacco Use Status: Former Tobacco user Tobacco use type: Cigarette Use of substances other than those prescribed or required for medical reasons: No Have you been hit, kicked, punched, or otherwise hurt by someone within the past year? If so, by whom?: No Are you DNR?: No Advance Directives: No Advance Directives Information Provided: Yes Poor oral hygiene: No service: No Current occupational status: retired [employer] Allergies Allergy/AdvReac Type Severity Reaction Status Date / Time bee pollen [BEE STINGS] Allergy Severe ANAPHYLAXIS Verified 07/20/24 08:12 Home Medications ?Medication ?Instructions ?Recorded ?Confirmed ?Last Taken ?Type amitriptyline 100 mg tablet 100 mg PO BEDTIME 02/11/20 09/14/24 Unknown History atorvastatin 40 mg tablet 40 mg PO BEDTIME 02/11/20 09/14/24 Unknown History ferrous sulfate 325 mg (65 mg 325 mg PO DAILY 02/11/20 09/14/24 12/13/20 History iron) tablet lisinopril 40 mg tablet 40 mg PO DAILY 02/11/20 09/14/24 Unknown History paroxetine HCl 40 mg tablet 40 mg PO DAILY 02/11/20 09/14/24 11/10/21 History terazosin 1 mg capsule 1 mg PO DAILY 02/11/20 09/14/24 Unknown History sennosides 8.6 mg tablet 17.2 mg PO DAILY 06/10/20 09/14/24 Unknown History trazodone 100 mg tablet 100 mg PO BEDTIME 12/27/20 09/14/24 Unknown History celecoxib 200 mg capsule 200 mg PO BID 12/08/21 09/14/24 Unknown History amlodipine 10 mg tablet 10 mg PO DAILY 03/02/24 09/14/24 Unknown History Exam Height,Weight and Vital Signs: Height 5 ft 7 in Assessment and Plan Assessment Anesthesia Assessment: Chart Reviewed Final Anesthetic Review Family History of Problems with Anesthesia: No History of Problems with Anesthesia: No Documented by User: Davy Roper MD 09/16/24 10:18 [facility] Past Medical History Medical History Hiatal hernia Barretts esophagus Anemia Depression Elevated cholesterol HTN (hypertension) Family History Family History Father No problems noted. Mother Breast cancer Brother Prostate cancer Surgical History Surgical History History of esophagogastroduodenoscopy (EGD) H/O colonoscopy Social History Social History Household Members: None Household Members Other:: lives alone Are you a primary caretaker grounds to a significant other at home: No Do you presently have visiting nurse or other home services: No Alcohol intake: current Alcohol intake frequency: does not drink Patient Tobacco Use Status: Former Tobacco user Tobacco use type: Cigarette Use of substances other than those prescribed or required for medical reasons: No Have you been hit, kicked, punched, or otherwise hurt by someone within the past year? If so, by whom?: No Are you DNR?: No Advance Directives: No Advance Directives Information Provided: Yes Poor oral hygiene: No service: No Current occupational status: retired [employer] Allergies Allergy/AdvReac Type Severity Reaction Status Date / Time bee pollen [BEE STINGS] Allergy Severe ANAPHYLAXIS Verified 07/20/24 08:12 Home Medications ?Medication ?Instructions ?Recorded ?Confirmed ?Last Taken ?Type amitriptyline 100 mg tablet 100 mg PO BEDTIME 02/11/20 09/14/24 Unknown History atorvastatin 40 mg tablet 40 mg PO BEDTIME 02/11/20 09/14/24 Unknown History ferrous sulfate 325 mg (65 mg 325 mg PO DAILY 02/11/20 09/14/24 12/13/20 History iron) tablet lisinopril 40 mg tablet 40 mg PO DAILY 02/11/20 09/14/24 Unknown History paroxetine HCl 40 mg tablet 40 mg PO DAILY 02/11/20 09/14/24 11/10/21 History terazosin 1 mg capsule 1 mg PO DAILY 02/11/20 09/14/24 Unknown History sennosides 8.6 mg tablet 17.2 mg PO DAILY 06/10/20 09/14/24 Unknown History trazodone 100 mg tablet 100 mg PO BEDTIME 12/27/20 09/14/24 Unknown History celecoxib 200 mg capsule 200 mg PO BID 12/08/21 09/14/24 Unknown History amlodipine 10 mg tablet 10 mg PO DAILY 03/02/24 09/14/24 Unknown History Exam Airway Mallampati Class: III TM Dist: >3cm Neck ROM: Full Partial: Upper and Lower Loose/Missing/Broken Teeth: Yes, Upper and Lower Assessment and Plan Assessment Anesthesia Assessment: Anesthesia Plan Discussed Final Anesthetic Review NPO: Yes ASA Class: II Final Preanesthetic Review: No Changes in Pt Med Stat, Meds/Allgs Chart Reviewed, Consent Obtained/Reviewed and Anes Risks/Benef Reviewed Patient Risk: Low Procedure Risk: Low Anesthetic Plan Anesthetic Plan: TIVA Disposition: Standard PACU
[2024-09-16 09:16] VITALS: BMI 32.3
[2024-09-16 09:20] VITALS: BP 131/81; PULSE 58; RESP 15; TEMP 36.5; O2SAT 98
[2024-09-16] MEDS: Lactated Ringers 1,000 ML 100 ML IVCONT (09:32)
--- NOTE | 2024-09-16 10:46 | MHC.SHP ---
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 Relevant Family History (Specify if Yes): No Relevant Social History: None Present Medications: see Short Stay Collaborative assessment Medical History: Significant History (Hiatal hernia Barretts esophagus Anemia Depression Elevated cholesterol HTN (hypertension)) History of Previous Operations: Relevant previous surgery/procedure and date(s) (History of esophagogastroduodenoscopy (EGD) H/O colonoscopy) Allergies: Allergies Allergy/AdvReac Type Severity Reaction Status Date / Time bee pollen [BEE STINGS] Allergy Severe ANAPHYLAXIS Verified 07/20/24 08:12 Review of Systems Sugical H&P ROS: Negative: Constitution, Cardiovascular, Respiratory, Neurological, Psychiatric, Hem-Onc, Allergic/Immunologic, Gastrointestinal, Genitourinary, Musculoskeletal, Integumentary, Endocrine and Eyes/Ears/Nose/Throat Exam Surgical H&P Exam: Normal: HEENT, Normal: Heart, Normal: Lungs, Normal: Extremities, Normal: Abdomen, Normal: Skin and Normal: Neurological Plan Diagnosis/Plan: Unchanged I have reviewed the history and physical and performed a pertinent physical examination on my patient. No changes have occurred unless specified. EGD with APC for barretts Time Spent With Patient Time: Total time managing care of this patient today ____ minutes.
--- NOTE | 2024-09-16 11:52 | W.PM.OPN ---
Operative Note Operative Note Date of Service: 09/16/24 Narrative: Procedure Description: EGD Indication: barretts with low grade dysplasia Anesthesia: MAC FLEXIBLE TRANSORAL UPPER GASTROINTESTINAL ENDOSCOPY UPPER ENDOSCOPY Consent: Indications for the procedure and potential complications of bleeding, perforation, reaction to medications and missed diagnosis were discussed with the patient and informed consent was obtained. Instrument: Olympus GIF H 190 J mid size upper endoscope Monitoring: Vital signs and clinical assessment, continuous EKG monitoring, Pulse oximetry, Carbon Dioxide monitoring and blood pressure monitoring were done throughout the procedure. Procedure: The patient was placed in the left lateral decubitis position and pre-procedure medications were administered and a bite block was placed. The endoscope was inserted into the mouth and advanced under direct vision to the third part of duodenum. A careful inspection was made as the upper endoscope was withdrawn including a retroflexed examination of the proximal stomach; Findings and interventions are described below. Findings: Larynx:normal Esophagus: GE junction at 34? cm, diaphragm hiatus at 42 cm, consistent with 8 cm hiatal hernia. Long segment of salmon pink mucosa noted C10M11, WATS brushings taken with 3 separate kits. No discrete nodular lesions or masses seen with blue light.Using APC 60 W was then used to ablate the distal 3-4 cm segment of the esophagus after using ERBE jet with methyelene blue. One spot clip applied due to oozing. Stomach:Pathyc erythema . Grade 3 flap valve on retroflexed examination of the cardia. Duodenum: Normal bulb and descending duodenum, Intervention: Biopsies as noted above with brushings for WATS sampling, and Hybrid APC Impression/Findings: Barretts esophagus hiatal hernia gastritis PLAN: await WATS results repeat Hybrid APC as scheduled
[2024-09-16 12:04] VITALS: BP 118/76; PULSE 68; RESP 16; TEMP 36.1; O2SAT 97
[2024-09-16 12:11] VITALS: BP 123/78; PULSE 63; RESP 16; O2SAT 92
[2024-09-16 12:26] VITALS: BP 120/70; PULSE 63; RESP 16; TEMP 36.2; O2SAT 95
== END 2024-09-16 12:51 | disposition home or self-care (01) ==
PROVIDERS: PCP Internal Medicine; Visit Provider Internal Medicine Gastroenterology
PROC: (CPT 43239; principal; 2024-09-16 10:10)
DX: K22.70 Barrett's esophagus without dysplasia (principal); K29.50 Unspecified chronic gastritis without bleeding; Z86.19 Personal history of other infectious and parasitic diseases; K44.9 Diaphragmatic hernia without obstruction or gangrene; D64.9 Anemia, unspecified; I10 Essential (primary) hypertension; E78.00 Pure hypercholesterolemia, unspecified; F32.A Depression, unspecified; Z79.82 Long term (current) use of aspirin; Z79.899 Other long term (current) drug therapy; Z87.891 Personal history of nicotine dependence
CPT/HCPCS: 43239; 43255; 88305; 88342; J2003; J2704; Q9968

== ENCOUNTER → 2024-09-16 07:29 | Outpatient (BNV) | payer MEDICARE, SELFPAY | PROVIDERS: PCP Internal Medicine; Visit Provider Internal Medicine Gastroenterology | DX: K22.710 Barrett's esophagus with low grade dysplasia (principal); K29.70 Gastritis, unspecified, without bleeding | CPT/HCPCS: 45382 ==

== ENCOUNTER 2024-10-28 08:49 | Day surgery (SDC) | payer MEDICARE, SELFPAY ==
--- OUTSIDE RECORDS SUMMARY | 2024-09-11 09:13 | XMS_ITS | Encounter Summary ---
Author Organization [facility] Address [address] [place] [address] 7 [place] [address] Care Team Providers Care Frame Repairer Name Role Phone Shannan [place] MD Primary Care Provider Encounter Details Date Type Department Care Team (Late Contact Info) Description 06/07/2022 Orders Only [facility] [address] [place], [place] [phone] Shannan [place] MD [address] [place], [place] [phone] Primary hypertension (Primary Dx) Social History Tobacco [...] Care Team (Late st Contact Info) Description 10/08/2024 9:30 AM EDT Office Visit [facility] [address] [place], [place] [phone] Shannan [place] MD [address] [place] [address] documented as of this encounter Procedures Procedure Name Priority Date/Time Associated Diagnosis Comments COMPREHENSIVE METABOLIC PANEL, FASTING Routine 02/07/2023 9:42 AM EDT Primary hypertension documented in this encounter Results * (ABNORMAL) Comprehensive Metabolic Panel, Fasting (02/07/2023 9:42 AM EDT) Sodium 142 135 - 145 mmol/L [facility] Potassium 3.8 3.3 - 5.1 mmol/L [facility] Chloride 111(H) 96 - 108 mmol/L [facility] Carbon Dioxide 22 22 - 29 mmol/L [facility] Anion Gap 13 12 - 20 [facility] Urea Nitrogen (BUN) 19(H) 9 - 16 mg/dL [facility] Creatinine, Serum 0.76 0.5 - 1.4 mg/dL [facility] Estimated Glomerular Filt Rate >60 [facility] Comment:NOTE: For -Am erican individuals, multiply the result by 1.210.Chronic Kidney Disease: Estimated GFR < 60 mL/min/1.60m0Yzmbfj Kidney Disease: Estimated GFR < 15 mL/min/1.73m2 Glucose Fasting 76 60 - 99 mg/dL [facility] Calcium 9.1 8.4 - 10.2 mg/dL [facility] Bilirubin, Total 0.5 0.0 - 1.0 mg/dL [facility] Aspartate Amino Transferase 26 5 - 37 U/L [facility] Alanine Aminotransferase 33 0 - 40 U/L [facility] Total Protein 7.2 6.5 - 8.0 g/dL [facility] Albumin Level 4.6 3.5 - 5.0 g/dL [facility] Alkaline Phosphatase 75 39 - 117 U/L [facility] 02/07/2023 9:42 AM EDT 02/07/2023 2:05 PM EDT us Shannan [place] MD LAB BLOOD ORDERABLES Final Result [facility] [address] [place] [phone] documented in this encounter Visit Diagnoses Diagnosis Primary hypertension- Primary Unspecified essential hypertension documented in this encounter Additional Health Concerns Assessment Noted Time PHQ-9 Depression Total Score: 4 03/26/20 22 9:28 AM EST documented as of this encounter Care Teams Frame Repairer Relationship Specialty Start Date End Date Shannan [place] MD [address] [place] [address] PCP - General Internal Medicine 09/27/16 documented as of this encounter
[2024-10-28 09:40] VITALS: BP 96/69; PULSE 60; RESP 14; TEMP 36.6; O2SAT 96; BMI 32.8
[2024-10-28] MEDS: Lactated Ringers 1,000 ML 100 ML IVCONT (09:50)
--- NOTE | 2024-10-28 09:59 | HO.ANESPROP2 ---
[facility] [place] Active Problems Active Problems: All Active Problems (Updated 03/24/24 @ 09:29 by Adán Ragland MD) Normocytic normochromic anemia (Acute) Fatigue (Acute) Iron deficiency (Acute) Colonic polyp (Acute) Springer's esophagus (Acute) Depression (Acute) Past Medical History Medical History Hiatal hernia Barretts esophagus Anemia Depression Elevated cholesterol HTN (hypertension) Family History Family History Father No problems noted. Mother Breast cancer Brother Prostate cancer Family history of problems with anesthesia: No Surgical History Surgical History History of esophagogastroduodenoscopy (EGD) H/O colonoscopy History of Problems with Anesthesia: No Social History Social History Household Members: None Household Members Other:: lives alone Are you a primary care rep to a significant other at home: No Do you presently have visiting nurse or other home services: No Alcohol intake: current Alcohol intake frequency: does not drink Patient Tobacco Use Status: Former Tobacco user Tobacco use type: Cigarette Use of substances other than those prescribed or required for medical reasons: No Have you been hit, kicked, punched, or otherwise hurt by someone within the past year? If so, by whom?: No Are you DNR?: No Advance Directives: No Advance Directives Information Provided: Yes Poor oral hygiene: Yes service: No Current occupational status: retired [employer] Allergies Allergy/AdvReac Type Severity Reaction Status Date / Time bee pollen (BEE STINGS) Allergy Severe ANAPHYLAXIS Verified 10/28/24 09:31 Active Medications: Current Medications Lactated Ringer's (Lr) 1,000 mls @ 100 mls/hr IVCONT .Q10H JAI Last Admin: 10/28/24 09:50 Dose: 100 mls/hr Naloxone HCl (Naloxone Hcl 0.4 Mg/Ml Vial) 0.04 mg IVPUSH Q5M PRN PRN Reason: Excessive sedation or RR < 8 Home Medications ?Medication ?Instructions ?Recorded ?Confirmed ?Last Taken ?Type amitriptyline 100 mg tablet 100 mg PO BEDTIME 02/11/20 09/14/24 Unknown History atorvastatin 40 mg tablet 40 mg PO BEDTIME 02/11/20 09/14/24 Unknown History ferrous sulfate 325 mg (65 mg 325 mg PO DAILY 02/11/20 09/14/24 12/13/20 History iron) tablet lisinopril 40 mg tablet 40 mg PO DAILY 02/11/20 09/14/24 Unknown History paroxetine HCl 40 mg tablet 40 mg PO DAILY 02/11/20 10/28/24 10/28/24 History terazosin 1 mg capsule 1 mg PO DAILY 02/11/20 09/14/24 Unknown History sennosides 8.6 mg tablet 17.2 mg PO DAILY 06/10/20 09/14/24 Unknown History trazodone 100 mg tablet 100 mg PO BEDTIME 12/27/20 09/14/24 Unknown History celecoxib 200 mg capsule 200 mg PO BID 12/08/21 09/14/24 Unknown History amlodipine 10 mg tablet 10 mg PO DAILY 03/02/24 10/28/24 10/28/24 History Exam Height,Weight and Vital Signs: Height 5 ft 7 in Weight 95 kg Last Vital Signs Temp 97.8 F 10/28/24 09:40 Pulse 60 10/28/24 09:40 Resp 14 10/28/24 09:40 BP 96/69 10/28/24 09:40 Pulse Ox 96 10/28/24 09:40 O2 Del Method Room Air 10/28/24 09:40 Airway Mallampati Class: II TM Dist: >3cm Neck ROM: Full Partial: Upper and Lower Heart: rrr Lungs: cta Assessment and Plan Assessment Anesthesia Assessment: Anesthesia Plan Discussed and Chart Reviewed Final Anesthetic Review Family History of Problems with Anesthesia: No History of Problems with Anesthesia: No NPO: Yes ASA Class: II Final Preanesthetic Review: No Changes in Pt Med Stat, Meds/Allgs Chart Reviewed and Consent Obtained/Reviewed Patient Risk: Intermediate Procedure Risk: Intermediate Anesthetic Plan Anesthetic Plan: MAC: Disposition: Standard PACU
--- NOTE | 2024-10-28 10:05 | P.HPSUR_ITS ---
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 Relevant Family History (Specify if Yes): No Relevant Social History: None Present Medications: see Short Stay Collaborative assessment Medical History: Significant History (Hiatal hernia Barretts esophagus Anemia Depression Elevated cholesterol HTN (hypertension)) History of Previous Operations: Relevant previous surgery/procedure and date(s) (History of esophagogastroduodenoscopy (EGD) H/O colonoscopy) Allergies: Allergies Allergy/AdvReac Type Severity Reaction Status Date / Time bee pollen (BEE STINGS) Allergy Severe ANAPHYLAXIS Verified 10/28/24 09:31 Review of Systems Sugical H&P ROS: Negative: Constitution, Cardiovascular, Respiratory, Neurol ogical, Psychiatric, Hem-Onc, Allergic/Immunologic, Gastrointestinal, Genitourinary, Musculoskeletal, Integumentary, Endocrine and Eyes/Ears/Nose/Throat Exam Surgical H&P Exam: Normal: HEENT, Normal: Heart, Normal: Lungs, Normal: Extremities, Normal: Abdomen, Normal: Skin and Normal: Neurological Plan Diagnosis/Plan: Unchanged I have reviewed the history and physical and performed a pertinent physical examination on my patient. No changes have occurred unless specified. Time Spent With Patient Time: Total time managing care of this patient today ____ minutes.
--- NOTE | 2024-10-28 10:24 | W.PM.OPN ---
Operative Note Operative Note Date of Service: 10/28/24 Narrative: Procedure Description: EGD Indication: barretts, with dysplasia Anesthesia: MAC FLEXIBLE TRANSORAL UPPER GASTROINTESTINAL ENDOSCOPY UPPER ENDOSCOPY Consent: Indications for the procedure and potential complications of bleeding, perforation, reaction to medications and missed diagnosis were discussed with the patient and informed consent was obtained. Instrument: Olympus GIF H 190 J mid size upper endoscope Monitoring: Vital signs and clinical assessment, continuous EKG monitoring, Pulse oximetry, Carbon Dioxide monitoring and blood pressure monitoring were done throughout the procedure. Procedure: The patient was placed in the left lateral decubitis position and pre-procedure medications were administered and a bite block was placed. The endoscope was inserted into the mouth and advanced under direct vision to the third part of duodenum. A careful inspection was made as the upper endoscope was withdrawn including a retroflexed examination of the proximal stomach; Findings and interventions are described below. Findings: Larynx:normal Esophagus: GE junction at 34? cm, diaphragm hiatus at 42 cm, consistent with 8 cm hiatal hernia. Long segment of salmon pink mucosa noted C10M11, No discrete nodular lesions or masses seen with blue light.Using APC 60 W was then used to ablate a 4 cm segment of the esophagus from 32 to 28 cm after using ERBE jet with methyelene blue, slough was then scraped off and then tissue re ablated with 40 W APC, effect 2. Stomach:Pathyc erythema . Grade 3 flap valve on retroflexed examination of the cardia. Duodenum: Normal bulb and descending duodenum, Intervention: Hybrid APC Impression/Findings: Barretts esophagus hiatal hernia PLAN: repeat Hybrid APC as scheduled for remaining segment treatment. Cont with High dose PPI, will send magic mouthwash
[2024-10-28 11:30] VITALS: BP 118/73; PULSE 66; RESP 16; TEMP 36.4; O2SAT 94
[2024-10-28] MEDS: Mag&Al/Sim/Diphenhyd/Lidocaine 10 ML ORAL.SUSP PO (11:46)
[2024-10-28 11:48] VITALS: BP 128/67; PULSE 59; RESP 18; TEMP 36.2; O2SAT 98
== END 2024-10-28 12:22 | disposition home or self-care (01) ==
PROVIDERS: PCP Internal Medicine; Visit Provider Internal Medicine Gastroenterology
PROC: (CPT 43270; principal; 2024-10-28 11:10)
DX: K22.719 Barrett's esophagus with dysplasia, unspecified (principal); K44.9 Diaphragmatic hernia without obstruction or gangrene; D64.9 Anemia, unspecified; E78.00 Pure hypercholesterolemia, unspecified; I10 Essential (primary) hypertension; F32.A Depression, unspecified; Z79.899 Other long term (current) drug therapy; Z87.891 Personal history of nicotine dependence
CPT/HCPCS: 43270; J2003; J2704; Q9968

== ENCOUNTER → 2024-10-28 08:49 | Outpatient (BNV) | payer MEDICARE, SELFPAY | PROVIDERS: PCP Internal Medicine; Visit Provider Internal Medicine Gastroenterology | DX: K22.719 Barrett's esophagus with dysplasia, unspecified (principal); K44.9 Diaphragmatic hernia without obstruction or gangrene | CPT/HCPCS: 43270 ==

== ENCOUNTER 2024-12-09 07:15 | Day surgery (SDC) | payer MEDICARE, SELFPAY ==
--- OUTSIDE RECORDS SUMMARY | 2024-10-30 08:29 | XMS_ITS | Data Portability ---
Author Organization MD - [facility], FATMATA Velasco Irvin Address [address] [place] [address] Care Team Providers Care Correctional Supervising Cook Name Role Phone [facility] Primary Care Provider Assessment Encounter Date Assessment Date Assessment LastModified by Organization Details LastModified Time 07/22/2024 07/22/2024 I am seeing the patient today under the supervision of ariadna who was available but who did not see the patient. HPI: Patient presents today follow-up regarding their L knee. They have had difficulty up and down stairs sitting standing. Previous injection gave good relief until recent. Problems ambulating. Iyur-fby-hhpzycn medications are helping somewhat but not significantly. Pain is constant aching sometimes sharp pain with giving out sensations. Past family, medical, social history and review of systems has been reviewed, updated and is located in the patient s chart. Examination: The patient is well appearing and in no apparent distress. Alert and oriented x3. Gait is symmetric. Examination of the L knee reveals no evidence of any edema, erythema, or warmth. no Deformity. Range of motion of the knee limited with mild discomfort at the end ranges. Mild effusion. Does have some tenderness to palpation about the medial hemijoint line. No tenderness to palpation about the lateral hemijoint line. Patellofemoral crepitus is noted. mild lateral ligamentous laxity. Negative Elizabeth s. Calf is supple and nontender. Neurovascularly intact distally. 4 X-ray views of the knee were independently reviewed today showed narrowing of the medial compartment of the L knee. With slight osteophyte formation. Narrowing is noted of patellofemoral joint as well. No evidence of any other bony lesions or pathology. Impression:L Knee osteoarthritis Plan: We discussed the role of conservative management including medications, physical therapy, injection and bracing. At this point the patient was to proceed with injection. Please see procedure note .Patient will continue conservative of systems icing and elevation and gkwl-xmr-hrxoeke medications. They will follow up with us as scheduled. [email or web address] Not available 07/22/2024 09:22:30 Plan of Treatment Reminders Order Date Submit Date Provider Last Modified By Organization Details Last Modified Time Details Appointments None record ed. Lab None record ed. Referral None record ed. Procedures None record ed. Surgeries None record ed. Imaging None record ed. Medication Orders None record ed. Patient TargetsNo targets recorded. Patient InstructionsNo instructions recorded. Reason for Referral None Reported. Problems Name Problem SNOMED Code Status Onset Date Resolution Date Notes Provider Name and Address Organization Details Recorded Time Osteoarthri tis of left knee joint [id number] 09 Active 2024 Willem Ramesh PA-C [address], [place], [address], [facility] 09:22:38 Problem Notes None recorded. Procedures Surgical History Date Name Laterality Status Provider Name and Address Organization Details Recorded Time 07/22/2024 JZ Knee Asp & Inj completed Willem Ramesh PA-C [address], [place], [address], [facility] 07/22/2024 09:22:56 Imaging Results None recorded. Procedure Notes None recorded. Medical Equipment None Reported. Allergies No known drug allergies Medications Name Sig Start Date Stop Date Status Note LastModified by Organization Details LastModified Time tetracycline 500 mg capsule TAKE ONE CAPSULE EVERY 6 HOURS FOR 14 DAYS active Not Available Not Available No t Available celecoxib 200 mg capsule TAKE ONE CAPSULE TWICE DAILY IN THE MORNING AND AT BEDTIME active Not Available Not Available No t Available atorvastatin 40 mg tablet TAKE ONE TABLET EVERY MORNING active Not Available Not Available No t Available senna 8.6 mg tablet TAKE TWO TABLETS EVERY DAY AT BEDTIME active Not Available Not Available N ot Available prednisone 20 mg tablet TAKE TWO TABLETS ONCE DAILY FOR 5 DAYS active Not Available Not Available N ot Available metronidazole 500 mg tablet TAKE ONE TABLET THREE TIMES DAILY FOR 14 DAYS active Not Available Not Available No t Available terazosin 1 mg capsule TAKE ONE CAPSULE EVERY NIGHT AT BEDTIME active Not Available Not Available No t Available trazodone 100 mg tablet TAKE ONE TABLET EVERY NIGHT AT BEDTIME active Not Available Not Available No t Available amlodipine 10 mg tablet TAKE ONE TABLET EVERY MORNING active Not Available Not Available No t Available pantoprazole 40 mg tablet,delaye d release TAKE ONE TABLET TWICE DAILY IN THE MORNING AND AT BEDTIME active Not Available Not Available No t Available ferrous sulfate 325 mg (65 mg iron) tablet TAKE ONE TABLET EVERY MORNING active Not Available Not Available No t Available bismuth subsalicylate 262 mg chewable tablet TAKE TWO TABLETS FOUR TIMES DAILY FOR 14 DAYS active Not Available Not Available No t Available paroxetine 40 mg tablet TAKE ONE TABLET EVERY MORNING active Not Available Not Available No t Available lisinopril 40 mg tablet TAKE ONE TABLET EVERY MORNING active Not Available Not Available No t Available amitriptyline 100 mg tablet TAKE ONE TABLET EVERY NIGHT AT BEDTIME active Not Available Not Available No t Available vardenafil 10 mg tablet TAKE ONE TABLET BY MOUTH ONCE DAILY NEEDED active Not Available Not Available No t Available vardenafil 20 mg tablet TAKE ONE TABLET BY MOUTH EVERY DAY NEEDED active Not Available Not Available No t Available sodium fluoride 1.1 %-potassium nitrate 5 % dental paste [place] teeth for 2 minutes, morning and night. Spit, do not rinse. Do not eat or drink anything for 30 minutes following brushing. active Not Available Not Available No t Available lidocaine 5 % topical ointment Apply topically Once per day. active Not Available Not Available No t Available Vitals Date Recorded Body height Body mass index (BMI) Body weight Provider Name and Address Organization Details Last Updated DateTime 07/22/2024 172.72 cm 31.2 kg/m2 94210.44 g [facility] 07/22/2024 08:52:16 Social History None recorded. Functional Status None recorded. Mental Status None recorded. Family History Nothing Reported. Medical History Condition Response Allergies/Hayfever N Coronary Artery Disease N Breathing or lung disorders N Anxiety/Depression N Emphysema N Nerve Disorders N Thyroid Problems N COPD N Pacemaker N Anemia N Kidney/Bladder Problems N Vascular Disease N Heart Trouble N Heart Attack ([place]) N Gastrointestinal Disease N Cholesterol N Diabetes N Autoimmune disease N Bleeding Disorder N Inflammatory Joint disease N Orthotics N Arthritis Y Seizures/Epilepsy N Blood Clot N AIDS/HIV N Congestive Heart Failure (CHF) N Acid Reflux (GERD) N Cancer N Stroke N Asthma N Circulation Problems N Peripheral Vascular Disease N Sleep Apnea N Hepatitis N Heart Disease N Rheumatoid Arthritis N Arrhythmia N Pulmonary Embolism N Headaches N Fibromyalgia N Hypertension Y Osteoporosis N Past Encounters Encounter ID Performer Location Encounter Start Date Encounter Closed Date Diagnosis/Indication Diagnosis SNOMED-CT Code Diagnosis ICD10 Code Diagnosis Note [id number] [facility] [address] [place] [address] 07/22/2024 08:35:37 08/05/2024 11:51:31 Osteoarthritis of left knee joint [id number] 55108 M17.12 Health Concerns Section Related Observation LastModified by Organization Detai ls LastModified Time None Recorded Concern Status LastModified by Organization Details LastModified Time None Recorded Advance Directives Directive None Recorded Payers Insurance Date Sequence Insurance Name Policy Number Policy Perez Covered Member ID Perez Member ID Guarantor Name 08/05/2024 1 [facility] (MEDICARE REPLACEMENT/A DVANTAGE - HMO) [id number] Axel Sotomayor [id number] Axel Sotomayor
--- OUTSIDE RECORDS SUMMARY | 2024-10-30 08:29 | XMS_ITS | Encounter Summary ---
Author Organization [employer] Address [address] [place] [address] Care Team Providers Care Electrician Supervisor Name Role Phone Shannan Houtson MD Primary Care Provider Encounter Details Date Type Department Care Team (Late st Contact Info) Description 06/07/2022 Orders Only [facility] [address], [place] [phone] Shannan Houston MD [address], [place] [phone] Primary hypertension (Primary Dx) Social History Tobacco [...] EDT) Sodium 142 135 - 145 mmol/L [facility] Potassium 3.8 3.3 - 5.1 mmol/L [facility] Chloride 111(H) 96 - 108 mmol/L [facility] Carbon Dioxide 22 22 - 29 mmol/L [facility] Anion Gap 13 12 - 20 [facility] Urea Nitrogen (BUN) 19(H) 9 - 16 mg/dL [facility] Creatinine, Serum 0.76 0.5 - 1.4 mg/dL [facility] Estimated Glomerular Filt Rate >60 [facility] Comment:NOTE: For -Am erican individuals, multiply the result by 1.210.Chronic Kidney Disease: Estimated GFR < 60 mL/min/[id number] Kidney Disease: Estimated GFR < 15 mL/min/1.73m2 Glucose Fasting 76 60 - 99 mg/dL [facility] Calcium 9.1 8.4 - 10.2 mg/dL [facility] Bilirubin, Total 0.5 0.0 - 1.0 mg/dL [facility] Aspartate Amino Transferase 26 5 - 37 U/L [facility] Alanine Aminotransferase 33 0 - 40 U/L [facility] Total Protein 7.2 6.5 - 8.0 g/dL [facility] Albumin Level 4.6 3.5 - 5.0 g/dL [facility] Alkaline Phosphatase 75 39 - 117 U/L [facility] 02/07/2023 9:42 AM EDT 02/07/2023 2:05 PM EDT Shannan Houston MD LAB BLOOD ORDERABLES Final Result [facility] [address] [place] [address] [phone] documented in this encounter Visit Diagnoses Diagnosis Primary hypertension- Primary Unspecified essential hypertension documented in this encounter Additional Health Concerns Assessment Noted Time PHQ-9 Depression Total Score: 4 03/26/20 22 9:28 AM EST documented as of this encounter Care Teams Electrician Supervisor Relationship Specialty Start Date End Date Shannan Houston MD [address] [place] [phone] PCP - General Internal Medicine 09/27/16 documented as of this encounter
[2024-12-04 15:00] VITALS: BMI 32.8
--- NOTE | 2024-12-08 09:26 | HO.ANESPROP2 ---
Documented by User: Yessi Solomon NP 12/08/24 09:27 HPI - Anesthesia Eval Consult details Narrative: 74 yr old male for upper endoscopy with APC s/p upper endo with APC with TIVA 10/2024 [facility] Active Problems Active Problems: All Active Problems Normocytic normochromic anemia (Acute) Fatigue (Acute) Iron deficiency (Acute) Colonic polyp (Acute) Springer's esophagus (Acute) Depression (Acute) Past Medical History Medical History Hiatal hernia Barretts esophagus Anemia Depression Elevated cholesterol HTN (hypertension) Family History Family History Father No problems noted. Mother Breast cancer Brother Prostate cancer Family history of problems with anesthesia: No Surgical History Surgical History History of esophagogastroduodenoscopy (EGD) H/O colonoscopy History of Problems with Anesthesia: No Social History Social History Household Members: None Household Members Other:: lives alone Are you a primary care transition manager to a significant other at home: No Do you presently have visiting nurse or other home services: No Alcohol intake: current Alcohol intake frequency: does not drink Patient Tobacco Use Status: Former Tobacco user Tobacco use type: Cigarette Use of substances other than those prescribed or required for medical reasons: No Have you been hit, kicked, punched, or otherwise hurt by someone within the past year? If so, by whom?: No Are you DNR?: No Advance Directives: No Advance Directives Information Provided: Yes Poor oral hygiene: Yes service: No Current occupational status: retired Meds Allergies Allergy/AdvReac Type Severity Reaction Status Date / Time bee pollen (BEE STINGS) Allergy Severe ANAPHYLAXIS Verified 12/09/24 07:39 Home Medications ?Medication ?Instructions ?Recorded ?Confirmed ?Last Taken ?Type amitriptyline 100 mg tablet 100 mg PO BEDTIME 02/11/20 12/09/24 Unknown History atorvastatin 40 mg tablet 40 mg PO BEDTIME 02/11/20 12/09/24 Unknown History ferrous sulfate 325 mg (65 mg 325 mg PO DAILY 02/11/20 12/09/24 12/13/20 History iron) tablet lisinopril 40 mg tablet 40 mg PO DAILY 02/11/20 12/09/24 Unknown History paroxetine HCl 40 mg tablet 40 mg PO DAILY 02/11/20 12/09/24 10/28/24 History terazosin 1 mg capsule 1 mg PO DAILY 02/11/20 12/09/24 Unknown History sennosides 8.6 mg tablet 17.2 mg PO DAILY 06/10/20 12/09/24 Unknown History trazodone 100 mg tablet 100 mg PO BEDTIME 12/27/20 12/09/24 Unknown History celecoxib 200 mg capsule 200 mg PO BID 12/08/21 12/09/24 Unknown History amlodipine 10 mg tablet 10 mg PO DAILY 03/02/24 12/09/24 12/09/24 History Exam Height,Weight and Vital Signs: Height 5 ft 7 in Weight 95 kg Assessment and Plan Final Anesthetic Review Family History of Problems with Anesthesia: No History of Problems with Anesthesia: No Documented by User: Veronica Aponte MD 12/09/24 09:11 PMFSH Past Medical History Medical History Hiatal hernia Barretts esophagus Anemia Depression Elevated cholesterol HTN (hypertension) Family History Family History Father No problems noted. Mother Breast cancer Brother Prostate cancer Surgical History Surgical History History of esophagogastroduodenoscopy (EGD) H/O colonoscopy Social History Social History Household Members: None Household Members Other:: lives alone Are you a primary care transition manager to a significant other at home: No Do you presently have visiting nurse or other home services: No Alcohol intake: current Alcohol intake frequency: does not drink Patient Tobacco Use Status: Former Tobacco user Tobacco use type: Cigarette Use of substances other than those prescribed or required for medical reasons: No Have you been hit, kicked, punched, or otherwise hurt by someone within the past year? If so, by whom?: No Are you DNR?: No Advance Directives: No Advance Directives Information Provided: Yes Poor oral hygiene: Yes service: No Current occupational status: retired [employer] Allergies Allergy/AdvReac Type Severity Reaction Status Date / Time bee pollen (BEE STINGS) Allergy Severe ANAPHYLAXIS Verified 12/09/24 07:39 Home Medications ?Medication ?Instructions ?Recorded ?Confirmed ?Last Taken ?Type amitriptyline 100 mg tablet 100 mg PO BEDTIME 02/11/20 12/09/24 Unknown History atorvastatin 40 mg tablet 40 mg PO BEDTIME 02/11/20 12/09/24 Unknown History ferrous sulfate 325 mg (65 mg 325 mg PO DAILY 02/11/20 12/09/24 12/13/20 History iron) tablet lisinopril 40 mg tablet 40 mg PO DAILY 02/11/20 12/09/24 Unknown History paroxetine HCl 40 mg tablet 40 mg PO DAILY 02/11/20 12/09/24 10/28/24 History terazosin 1 mg capsule 1 mg PO DAILY 02/11/20 12/09/24 Unknown History sennosides 8.6 mg tablet 17.2 mg PO DAILY 06/10/20 12/09/24 Unknown History trazodone 100 mg tablet 100 mg PO BEDTIME 12/27/20 12/09/24 Unknown History celecoxib 200 mg capsule 200 mg PO BID 12/08/21 12/09/24 Unknown History amlodipine 10 mg tablet 10 mg PO DAILY 03/02/24 12/09/24 12/09/24 History Exam Airway Mallampati Class: II TM Dist: >3cm Neck ROM: Limited Heart: rrr Lungs: cta Assessment and Plan Assessment Anesthesia Assessment: Anesthesia Plan Discussed and Chart Reviewed Final Anesthetic Review NPO: Yes ASA Class: II Final Preanesthetic Review: No Changes in Pt Med Stat, Meds/Allgs Chart Reviewed, Consent Obtained/Reviewed and Anes Risks/Benef Reviewed Patient Risk: Intermediate Procedure Risk: Low Anesthetic Plan Anesthetic Plan: MAC: and Agree w/ Assess. and Plan
[2024-12-09 08:05] VITALS: BP 104/62; PULSE 66; RESP 16; TEMP 36.4; O2SAT 97; BMI 32.9
[2024-12-09] MEDS: Lactated Ringers 1,000 ML 100 ML IVCONT (08:07)
--- NOTE | 2024-12-09 08:36 | MHC.SHP ---
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 Relevant Family History (Specify if Yes): No Relevant Social History: None Present Medications: see Short Stay Collaborative assessment Medical History: Significant History (Hiatal hernia Barretts esophagus Anemia Depression Elevated cholesterol HTN (hypertension)) History of Previous Operations: Relevant previous surgery/procedure and date(s) (History of esophagogastroduodenoscopy (EGD) H/O colonoscopy) Allergies: Allergies Allergy/AdvReac Type Severity Reaction Status Date / Time bee pollen (BEE STINGS) Allergy Severe ANAPHYLAXIS Verified 12/09/24 07:39 Review of Systems Sugical H&P ROS: Negative: Constitution, Cardiovascular, Respiratory, Neurological, Psychiatric, Hem-Onc, Allergic/Immunologic, Gastrointestinal, Genitourinary, Musculoskeletal, Integumentary, Endocrine and Eyes/Ears/Nose/Throat Exam Surgical H&P Exam: Normal: HEENT, Normal: Heart, Normal: Lungs, Normal: Extremities, Normal: Abdomen, Normal: Skin and Normal: Neurological Plan Diagnosis/Plan: Unchanged I have reviewed the history and physical and performed a pertinent physical examination on my patient. No changes have occurred unless specified. Time Spent With Patient Time: Total time managing care of this patient today ____ minutes.
--- NOTE | 2024-12-09 09:53 | W.PM.OPN ---
Operative Note Operative Note Date of Service: 12/09/24 Narrative: Procedure Description: EGD Indication: Barretts esophagus and LGD Anesthesia: MAC FLEXIBLE TRANSORAL UPPER GASTROINTESTINAL ENDOSCOPY UPPER ENDOSCOPY Consent: Indications for the procedure and potential complications of bleeding, perforation, reaction to medications and missed diagnosis were discussed with the patient and informed consent was obtained. Instrument: Olympus GIF H 190 J mid size upper endoscope Monitoring: Vital signs and clinical assessment, continuous EKG monitoring, Pulse oximetry, Carbon Dioxide monitoring and blood pressure monitoring were done throughout the procedure. Procedure: The patient was placed in the left lateral decubitis position and pre-procedure medications were administered and a bite block was placed. The endoscope was inserted into the mouth and advanced under direct vision to the third part of duodenum. A careful inspection was made as the upper endoscope was withdrawn including a retroflexed examination of the proximal stomach; Findings and interventions are described below. Findings: Larynx:normal Esophagus: GE junction at 34? cm, diaphragm hiatus at 42 cm, consistent with 8 cm hiatal hernia. Long segment of salmon pink mucosa noted [id number], No discrete nodular lesions or masses seen with blue light. Using APC 60 W was then used to ablate a 4 cm segment of the esophagus from 29 to 25 cm after using ERBE jet with methyelene blue, slough was then scraped off and then tissue re ablated with 40 W APC, effect 2. Stomach:Pathyc erythema . Grade 3 flap valve on retroflexed examination of the cardia. Duodenum: Normal bulb and descending duodenum, Intervention: Hybrid APC Impression/Findings: Barretts esophagus hiatal hernia PLAN: repeat EGD in 3-4 months Cont with High dose PPI, will send magic mouthwash
[2024-12-09 09:59] VITALS: BP 100/61; PULSE 61; RESP 18; TEMP 36.9; O2SAT 88
[2024-12-09 10:00] VITALS: BP 93/54; PULSE 62; RESP 18; O2SAT 92
[2024-12-09 10:15] VITALS: BP 101/65; PULSE 62; RESP 18; O2SAT 94
[2024-12-09 10:30] VITALS: BP 113/63; PULSE 53; RESP 18; TEMP 36.6; O2SAT 96
== END 2024-12-09 11:12 | disposition home or self-care (01) ==
PROVIDERS: PCP Internal Medicine; Visit Provider Internal Medicine Gastroenterology
PROC: (CPT 43270; principal; 2024-12-09 08:30)
DX: K22.70 Barrett's esophagus without dysplasia (principal); K44.9 Diaphragmatic hernia without obstruction or gangrene; I10 Essential (primary) hypertension; E78.00 Pure hypercholesterolemia, unspecified; D64.9 Anemia, unspecified; Z79.82 Long term (current) use of aspirin; Z79.02 Long term (current) use of antithrombotics/antiplatelets
CPT/HCPCS: 43270; C1889; J2003; J2704; Q9968

== ENCOUNTER → 2024-12-09 07:15 | Outpatient (BNV) | payer MEDICARE, SELFPAY | PROVIDERS: PCP Internal Medicine; Visit Provider Internal Medicine Gastroenterology | DX: K22.70 Barrett's esophagus without dysplasia (principal) | CPT/HCPCS: 43270 ==